=== PATIENT | female | born 1965 | race Caucasian/White ===

== ENCOUNTER 2020-04-08 10:29 | Outpatient (CLI) | payer OTHER, SELFPAY ==
--- NOTE | ~2020-04-08 | MR_ITS ---
EXAMINATION: MR abdomen wo/w con DATE: 04/08/2020 12:06 INDICATION: Primary malignant neuroendocrine tumor of ileum. TECHNIQUE: Magnetic resonance imaging (MRI) of the abdomen was performed without and with 20 mL Multi Anayeli intravenous contrast. Sequences included coronal T2-weighted FS FSE, coronal and axial FS FIEST A, axial T2-weighted FSE, coronal LAVA-flex, axial STIR FSE, axial DWI, axial dual-echo T1-weighted F SPGR, and axial LAVA. Postcontrast sequences included coronal LAVA-flex and a time course of axial LA VA. COMPARISON: CT abdomen and pelvis 11/04/2017 FINDINGS: There are three arterially enhancing masses in right hepatic lobe measuring up to 12 mm best identifi ed on diffusion-weighted images. The gallbladder is absent. The spleen, pancreas, and adrenal glands are normal. There are cysts in the kidneys measuring up to 3.1 cm on the left. There is a supraumbili terrance ventral hernia containing fat. There are no dilated loops of bowel. There are no pathologically e nlarged lymph nodes. There is no free intraperitoneal fluid. IMPRESSION: 1. Three arterially enhancing masses in right hepatic lobe measuring up to 12 mm, which may be benign or metastatic disease. Reviewed, dictated and finalized at location A. IMPRESSION: 1. Three arterially enhancing masses in right hepatic lobe measuring up to 12 m m, which may be benign or metastatic disease.
[2020-04-08 11:23] LABS: Estimated Glomerular Filt Rate 52
== END 2020-04-08 10:30 | disposition home or self-care (01) ==
LOC: ANHIMG 10:33
PROVIDERS: PCP Family Medicine
DX: C7A.8 Other malignant neuroendocrine tumors (principal); K76.9 Liver disease, unspecified; R16.0 Hepatomegaly, not elsewhere classified
CPT/HCPCS: 36415; 74183; A9577

== ENCOUNTER 2020-06-24 09:52 | Outpatient (CLI) | payer OTHER, SELFPAY ==
--- NOTE | 2020-06-24 10:00 | EST_ITS ---
Patient Info Name: Stephanie Pascal Age: 54 years : 1965 Gender: Female Ht: 71 in Wt: 250 lbs BSA: 2.42 m2 Exam Date: 06/24/2020 10:21 AM Exam Location: [facility], [place] Stress Patient Status: Outpatient Admit Date: 06/24/2020 Staff Ordering Physician: Romeo Acevedo DO Attending Provider: Romeo Acevedo DO Exercise Technologist: Leona Ivy RDCS Exercise Physician: Romeo Acevedo DO Exam Type: CA stress test treadmill Study Info Indications R06.09 - Other forms of dyspnea A treadmill exercise stress test was performed. Summary 1. 1. Negative Jese exercise stress test for ischemic ST changes by ECG criteria. 2. 2. Good functional capacity, achieving 8 METs of workload. 3. 3. Appropriate HR response to exercise. 4. 4. Appropriate HR recovery at 1 minute post exercise. 5. 5. No imaging with stress testing. 6. 6. Patient informed of the above results. Protocol: Jese Stress ECG Details Stage: REST Duration (min): 6 min : 38 sec Speed (mph): 0.0 Grade (%): 0 HR (bpm): 64 SBP (mmHg): 135 DBP (mmHg): 80 METS: --- Stage: REST Duration (min): 23 min : 39 sec Speed (mph): 0.0 Grade (%): 0 HR (bpm): 70 SBP (mmHg): 135 DBP (mmHg): 80 METS: --- Stage: STAGE 1 Duration (min): 1 min : 0 sec Speed (mph): 1.7 Grade (%): 10 HR (bpm): 74 SBP (mmHg): 135 DBP (mmHg): 80 METS: --- Stage: STAGE 1 Duration (min): 2 min : 0 sec Speed (mph): 1.7 Grade (%): 10 HR (bpm): 108 SBP (mmHg): 135 DBP (mmHg): 80 METS: --- Stage: STAGE 1 Duration (min): 3 min : 0 sec Speed (mph): 1.7 Grade (%): 10 HR (bpm): 115 SBP (mmHg): 138 DBP (mmHg): 94 METS: --- Stage: STAGE 2 Duration (min): 1 min : 0 sec Speed (mph): 2.5 Grade (%): 12 HR (bpm): 120 SBP (mmHg): 138 DBP (mmHg): 94 METS: --- Stage: STAGE 2 Duration (min): 2 min : 0 sec Speed (mph): 2.5 Grade (%): 12 HR (bpm): 118 SBP (mmHg): 178 DBP (mmHg): 113 METS: --- Stage: STAGE 2 Duration (min): 3 min : 0 sec Speed (mph): 2.5 Grade (%): 12 HR (bpm): 131 SBP (mmHg): 178 DBP (mmHg): 113 METS: --- Stage: STAGE 3 Duration (min): 0 min : 56 sec Speed (mph): 3.4 Grade (%): 14 HR (bpm): 142 SBP (mmHg): 173 DBP (mmHg): 52 METS: --- Stage: RECOVERY Duration (min): 0 min : 3 sec Speed (mph): 1.5 Grade (%): 0 HR (bpm): 142 SBP (mmHg): 173 DBP (mmHg): 52 METS: --- Stage: RECOVERY Duration (min): 1 min : 3 sec Speed (mph): 0.0 Grade (%): 0 HR (bpm): 123 SBP (mmHg): 172 DBP (mmHg): 71 METS: --- Stage: RECOVERY Duration (min): 2 min : 3 sec Speed (mph): 0.0 Grade (%): 0 HR (bpm): 108 SBP (mmHg): 177 DBP (mmHg): 79 METS: --- Stage: RECOVERY Duration (min): 3 min : 3 sec Speed (mph): 0
== END 2020-06-24 09:53 | disposition home or self-care (01) ==
LOC: ANHCARD 09:54
PROVIDERS: PCP Family Medicine; Visit Provider Internal Medicine Cardiovascular Disease
DX: R06.00 Dyspnea, unspecified (principal)
CPT/HCPCS: 93017

== ENCOUNTER 2020-07-16 08:18 | Outpatient (CLI) | payer OTHER, SELFPAY ==
--- NOTE | ~2020-07-16 | MM_ITS ---
EXAMINATION: MM screening emilia BI w leonides HISTORY: Screening TECHNIQUE: Craniocaudal and mediolateral oblique 3-D tomosynthesis images were obtained and synthetic 2-D images were generated. CAD analysis was submitted and interpreted. COMPARISON: No prior mammogram is available for comparison at this institution. BREAST PARENCHYMAL COMPOSITION: There are scattered areas of fibroglandular density. FINDINGS: There are asymmetries in the upper outer quadrant of the right breast. No mammographic evid ence for malignancy in the left breast. IMPRESSION: 1. Irregular asymmetries, upper outer quadrant of the right breast. 2. Additional mammographic views and possible breast ultrasound are recommended. BI-RADS Category 0: Incomplete: Needs additional imaging evaluation. Reviewed, dictated and finalized at location A. IMPRESSION: 1. Irregular asymmetries, upper outer quadrant of the right breast. 2. Additional mammographic views and possible breast ultrasound are recommended . BI-RADS Category 0: Incomplete: Needs additional imaging evaluation.
== END 2020-07-16 08:19 | disposition home or self-care (01) ==
LOC: ANHIMG 08:22
PROVIDERS: PCP Family Medicine; Visit Provider Student in an Organized Health Care Education/Training Program
DX: Z12.31 Encounter for screening mammogram for malignant neoplasm of breast (principal); N64.89 Other specified disorders of breast
CPT/HCPCS: 77063; 77067

== ENCOUNTER 2020-09-05 06:57 | Outpatient (CLI) | payer OTHER, SELFPAY ==
--- NOTE | ~2020-09-05 | MR_ITS ---
EXAMINATION: MR abdomen wo/w con DATE: 09/05/2020 08:33 INDICATION: Primary malignant neuroendocrine tumor of ileum. TECHNIQUE: Magnetic resonance imaging (MRI) of the abdomen was performed without and with 20 mL Multi Anayeli intravenous contrast. Sequences included coronal T2-weighted FS FSE, coronal and axial FS FIEST A, axial T2-weighted FSE, coronal LAVA-flex, axial STIR FSE, axial DWI, axial dual-echo T1-weighted F SPGR, and axial LAVA. Postcontrast sequences included coronal LAVA-flex and a time course of axial LA VA. COMPARISON: Abdomen MRI 04/08/2020 FINDINGS: There is diffuse hepatic steatosis. There are greater than 10 scattered arterial enhancing masses in the liver measuring up to 16 mm, increased from 12 mm on 04/08/20. More masses are visible than on the prior exam. The gallbladder is absent. The spleen, pancreas, and adrenal glands are normal. There are cysts in the kidneys measuring up to 3.3 cm on the left. There is a supraumbilical ventral hernia co ntaining fat. There are no dilated loops of bowel. There are no pathologically enlarged lymph nodes. There is no free intraperitoneal fluid. IMPRESSION: 1. Worsened liver masses, consistent with metastatic disease. Reviewed, dictated and finalized at location A.
[2020-09-05 07:57] LABS: Estimated Glomerular Filt Rate 58
== END 2020-09-05 06:58 | disposition home or self-care (01) ==
PROVIDERS: PCP Family Medicine
DX: C7A.8 Other malignant neuroendocrine tumors (principal); C7A.012 Malignant carcinoid tumor of the ileum
CPT/HCPCS: 74183; A9577

== ENCOUNTER 2021-02-02 12:44 | Outpatient (CLI) | payer OTHER, SELFPAY ==
--- NOTE | ~2021-02-02 | MR_ITS ---
EXAMINATION: MR abdomen wo/w con DATE: 02/02/2021 14:20 INDICATION: Neuroendocrine cancer. TECHNIQUE: Magnetic resonance imaging (MRI) of the abdomen was performed without and with 20 mL Multi Anayeli intravenous contrast. Sequences included coronal T2-weighted FS FSE, coronal and axial FS FIEST A, axial T2-weighted FSE, coronal LAVA-flex, axial STIR FSE, axial DWI, axial dual-echo T1-weighted F SPGR, and axial LAVA. Postcontrast sequences included coronal LAVA-flex and a time course of axial LA VA. COMPARISON: Abdomen MRI 09/05/2020 FINDINGS: There is diffuse hepatic steatosis. There are greater than 10 lesions scattered in the liver measurin g up to 18 mm, increased from 16 mm on the prior exam. These lesions are best identified on diffusion -weighted images. More lesions are present than on the prior exam. The gallbladder is absent. The spl een, pancreas, and adrenal glands are normal. There are cysts in the kidneys measuring up to 3.3 cm o n the left. There is a supraumbilical ventral hernia containing fat. There are no dilated loops of abbey wel. There are no pathologically enlarged lymph nodes. There is no free intraperitoneal fluid. IMPRESSION: 1. Worsened liver masses, consistent with metastatic disease. Reviewed, dictated and finalized at location A.
[2021-02-02 13:42] LABS: Estimated Glomerular Filt Rate 57
== END 2021-02-02 12:45 | disposition home or self-care (01) ==
LOC: ANHIMG 13:07
PROVIDERS: PCP Family Medicine
DX: C7A.8 Other malignant neuroendocrine tumors (principal); R16.0 Hepatomegaly, not elsewhere classified
CPT/HCPCS: 74183; A9577

== ENCOUNTER 2021-03-19 18:32 | Emergency (ER) | payer OTHER, SELFPAY ==
--- NOTE | ~2021-03-19 | XR_ITS ---
EXAMINATION: XR wrist RT min 3V EXAM DATE: 03/19/2021 19:09 INDICATION: Initial encounter following injury, with pain of the right wrist. TECHNIQUE: Right wrist frontal, frontal with ulnar deviation, oblique and lateral projections obtain ed and reviewed. There is no prior study for comparison. FINDINGS: Right wrist scapholunate joint space is maintained. There are no acute fractures or disloca tions identified. There is no subcutaneous gas. The soft tissue is unremarkable. There are no rad iopaque foreign bodies. IMPRESSION: 1. XR wrist RT min 3V exam without acute osseous findings. Reviewed, dictated and finalized at location A.
--- NOTE | ~2021-03-19 | XR_ITS ---
EXAMINATION: XR elbow RT min 3V EXAM DATE: 03/19/2021 19:32 INDICATION: Slipped off curb 03/19/21. Generalized post pain. Initial encounter. TECHNIQUE: Right elbow frontal, lateral with flexion, and oblique projections obtained and reviewed. There is no prior study for comparison. FINDINGS: There is acute closed posttraumatic right radial head/neck fracture with about 1 or 2 mm of depression. There is an elbow joint hemarthrosis. No other acute findings. IMPRESSION: Acute right radial head/neck fracture. Hemarthrosis. Reviewed, dictated and finalized at location A.
--- NOTE | 2021-03-19 18:34 | ED.UPPEXIN ---
HPI - Extremity Injury (Upper) General Chief Complaint: Extremity Injury, Upper Stated Complaint: Right arm injury Time Seen by Provider: 03/19/21 18:35 Source: patient and RN notes reviewed History of Present Illness HPI narrative: Patient is a 55-year-old female who presents the urgent care with complaints of right wrist/forearm injury. Patient states that she fell, tripping over the curb and at 530 this evening while walking. States that she caught herself with both hands out. Patient denies hitting her head or any loss of consciousness. Denies of any other injuries from the fall. Patient states that she is taken Advil prior to her arrival. No other acute complaints. No acute distress noted. Patient aware of the plan of care. Some parts of this dictation were generated by voice recognition software and may contain typographical and/or grammatical inaccuracies. Related Data Home Medications Medication Instructions Recorded Confirmed cholecalciferol (vitamin D3) 125 125 mcg PO DAILY 02/06/20 12/15/20 mcg (5,000 unit) capsule octreotide,microspheres 10 mg 10 mg IM ONCE 12/02/20 12/15/20 intramuscular kit Allergies Allergy/AdvReac Type Severity Reaction Status Date / Time Penicillins Allergy Mild rash Verified 03/19/21 18:44 nitrofurantoin Allergy Unknown rash Verified 03/19/21 18:44 Sulfa (Sulfonamide Allergy Unknown rash Verified 03/19/21 18:44 Antibiotics) Review of Systems Review of Systems: Narrative: CONSTITUTIONAL: Denies fever, chills, or sweats. EYES: Denies visual changes, redness, or discharge. ENT: Denies rhinorrhea, congestion, sore throat, or otalgia. CARDIOVASCULAR: Denies chest pain, palpitations, or edema. RESPIRATORY: Denies cough or dyspnea. GASTROINTESTINAL: Denies abdominal pain, nausea, vomiting, or diarrhea. GENITOURINARY: Denies dysuria or hematuria. SKIN: Denies rash or itching. MUSCULOSKELETAL: Reports of right wrist/forearm pain NEUROLOGIC: Denies headache, numbness, or weakness. All other systems reviewed are negative, except as documented in HPI. [facility] Past Medical History Medical History Anxiety Eustachian tube dysfunction Generalized anxiety disorder with panic attacks (~09/2019) H/O malignant carcinoid tumor of small intestine (~2018) Hypertension Hypothyroidism Neck muscle strain Surgical History Surgical History H/O right hemicolectomy (~2018) H/O thyroidectomy S/P cholecystectomy Family History Family History Father Family history of liver disease Hypertension Sibling Family history of heart disease in male family member before age 55 Family history of cardiovascular disease Mother Hypertension Grandparent Acute myocardial infarction Other Family history of blood dyscrasia Family history of mental disorder Family history of obesity Social History Social History Smoking packs per day: 0.5 Smoking cigarettes per day: 10.0 Years smoked: 15 Smoking pack-years: 7.50 Smoking status: Former smoker Tobacco type: cigarettes Smoking end date: 11/07/94 Alcohol intake: current Substance use: never Substance use type: does not use Comments At the time of my signature, I reviewed and agree with the nursing past medical, surgical, social, and family history. There is no relevant family history pertinent to the patient complaint. Exam Narrative: Exam Narrative: GENERAL: This is a well-nourished, well-developed patient, in no apparent distress. HEAD: normocephalic, atraumatic. EYES: PERRL. Sclera clear/white. Vision is grossly intact. EARS: External ears normal NOSE: External nose normal with no obvious nasal discharge, nares without redness, no rhinorrhea. THROAT: Mucous membranes moist NECK: Neck supple CARDIOVASCULA
[2021-03-19 18:38] VITALS: BP 137/77; PULSE 72; RESP 14; TEMP 36; O2SAT 98
[2021-03-19 18:46] VITALS: BP 137/77; PULSE 72; RESP 14; TEMP 36; O2SAT 98
== END 2021-03-19 20:09 | disposition home or self-care (01) ==
PROVIDERS: Emergency Provider Nurse Practitioner Family
DX: S52.121A Displaced fracture of head of right radius, initial encounter for closed fracture (principal); S52.131A Displaced fracture of neck of right radius, initial encounter for closed fracture; S63.501A Unspecified sprain of right wrist, initial encounter; S66.911A Strain of unspecified muscle, fascia and tendon at wrist and hand level, right hand, initial encounter; W18.09XA Striking against other object with subsequent fall, initial encounter
CPT/HCPCS: 29105; 73080; 73110; 99214; A4565; G0463

== ENCOUNTER 2021-06-04 09:01 | Outpatient (CLI) | payer OTHER, SELFPAY ==
[2021-06-04 16:53] LABS: Vitamin D 25 Hydroxy 39.1 ng/mL
== END 2021-06-04 09:02 | disposition home or self-care (01) ==
PROVIDERS: Visit Provider Internal Medicine Endocrinology, Diabetes & Metabolism
DX: E55.9 Vitamin D deficiency, unspecified (principal); R79.89 Other specified abnormal findings of blood chemistry
CPT/HCPCS: 36415; 82306

== ENCOUNTER 2021-07-17 09:13 | Outpatient (CLI) | payer OTHER, SELFPAY ==
--- NOTE | ~2021-07-17 | MM_ITS ---
EXAMINATION: MM screening emilia BI w leonides HISTORY: Screening mammogram TECHNIQUE: Craniocaudal and mediolateral oblique 3-D tomosynthesis images were obtained and synthetic 2-D images were generated. CAD analysis was submitted and interpreted. COMPARISON: 07/16/2020, 05/30/2018 bilateral digital screening mammogram examinations BREAST PARENCHYMAL COMPOSITION: There are scattered areas of fibroglandular density. FINDINGS: There is no evidence of suspicious mass, calcification, or architectural distortion to sugg est malignancy in either breast. There has been no suspicious interval change. IMPRESSION: 1. No mammographic evidence of malignancy. 2. Recommend routine screening mammography in one year. BI-RADS Category 1: Negative Reviewed, dictated and finalized at location A.
== END 2021-07-17 09:14 | disposition home or self-care (01) ==
LOC: ANHIMG 09:15
PROVIDERS: Visit Provider Student in an Organized Health Care Education/Training Program
DX: Z12.31 Encounter for screening mammogram for malignant neoplasm of breast (principal)
CPT/HCPCS: 77063; 77067

== ENCOUNTER → 2021-09-02 08:47 | Outpatient (CLI) | payer OTHER, SELFPAY ==
--- NOTE | ~2021-09-02 | MR_ITS ---
EXAMINATION: MR elbow RT wo con DATE: 09/02/2021 09:28 INDICATION: Displaced fracture of head of right radius, initial encounter. TECHNIQUE: Magnetic resonance imaging (MRI) of the right elbow was performed without intravenous cont rast. Sequences included coronal, axial, and sagittal PD-weighted FS FSE and coronal, axial, and sagi ttal PD-weighted FSE. COMPARISON: Right elbow radiographs 08/12/2021 FINDINGS: Osseous/other: There is a fracture of anterior radial head involving 40% of the articular surface with 1 mm step-off . There is partial-thickness cartilage loss in radiocapitellar joint. Tendons: The biceps tendon and brachialis tendon are normal. There is mild common extensor tendinopathy. There is mild common flexor tendinopathy. Ligaments: Radial collateral ligament and lateral ulnar collateral ligament are intact. There is a partial tear of ulnar collateral ligament at the ulnar attachment. Cubital tunnel: There is increased signal in ulnar nerve suggesting neuropathy. Fluid: There is an elbow joint effusion. IMPRESSION: 1. Radial head fracture involving the anterior 40% of the articular surface with 1 mm step-off. 2. Moderate chondrosis of radiocapitellar joint. 3. Elbow joint effusion. 4. Partial tear of ulnar collateral ligament. 5. Increased signal in ulnar nerve suggesting neuropathy. Reviewed, dictated and finalized at location A. IMPRESSION: 1. Radial head fracture involving the anterior 40% of the articular surface wit h 1 mm step-off. 2. Moderate chondrosis of radiocapitellar joint. 3. Elbow joint effusion. 4. Partial tear of ulnar collateral ligament. 5. Increased signal in ulnar nerve suggesting neuropathy.
== END ==
PROVIDERS: Visit Provider Physician Assistant Surgical
DX: S52.121A Displaced fracture of head of right radius, initial encounter for closed fracture (principal); M25.421 Effusion, right elbow; S53.441A Ulnar collateral ligament sprain of right elbow, initial encounter
CPT/HCPCS: 73221

== ENCOUNTER 2022-04-07 09:22 | Outpatient (CLI) | payer OTHER, SELFPAY ==
--- NOTE | ~2022-04-07 | US_ITS ---
EXAMINATION: US venous doppler [facility] DATE: 04/07/2022 10:24 INDICATION: Lymphedema TECHNIQUE: Grayscale ultrasound images without and with compression and Doppler ultrasound images of the bilateral lower extremity veins were obtained. COMPARISON: None. FINDINGS: The visualized portions of right common femoral vein, profunda (deep) femoral vein, femoral vein, pop liteal vein, posterior tibial veins, peroneal veins, gastrocnemius vein and greater saphenous vein ou tflow are patent. Right standing venous mapping: reflux seconds duration; vein size. Greater saphenous origin: 0 seconds; 6.5 mm. Greater saphenous mid thigh:------ 0 seconds; 2.9 mm. Greater saphenous below knee:--- >4 seconds; 3.5 mm. Lesser saphenous proximally:------ 0 seconds; 2.6 mm. Lesser saphenous distally: 0 seconds; 3.8 mm. The visualized portions of left common femoral vein, profunda femoral vein, femoral vein, popliteal v ein, posterior tibial veins, peroneal veins, gastrocnemius vein and greater saphenous vein outflow ar e patent. Left standing venous mapping: reflux seconds duration; vein size. Greater saphenous origin: 0 seconds; 6.7 mm. Greater saphenous mid thigh:------ 0 seconds; 4.6 mm. Greater saphenous below knee:--- 0 seconds; 4.1 mm. Lesser saphenous proximally:------ 0 seconds; 4.4 mm. Lesser saphenous distally: 0 seconds; 2.6 mm. IMPRESSION: 1. No deep venous thrombosis in either lower limb. 2. Venous reflux of >4 second duration at the right greater saphenous vein at the calf. Reviewed, dictated and finalized at location B. IMPRESSION: 1. No deep venous thrombosis in either lower limb. 2. Venous reflux of >4 second duration at the right greater saphenous vein at t he calf.
== END 2022-04-07 09:23 | disposition home or self-care (01) ==
PROVIDERS: PCP Family Medicine; Visit Provider Orthopaedic Surgery
DX: I89.0 Lymphedema, not elsewhere classified (principal); I87.2 Venous insufficiency (chronic) (peripheral)
CPT/HCPCS: 93970

== ENCOUNTER 2022-05-26 13:00 | Outpatient (RCR) | payer OTHER, SELFPAY ==
--- NOTE | 2022-04-27 11:53 | PCPTNOTE ---
pt will be on vacation next week, so treatment is delayed in starting.
--- NOTE | 2022-04-27 11:54 | PTOPEVAL ---
PHYSICAL THERAPY EVALUATION AND PLAN OF CARE 04-27-22 Thank you for referring Stella Pascal to [facility].? She is scheduled to be seen for therapy? 2x/week for 5 weeks. Please review, sign, date and return this plan of care SINDHU. I agree with and certify that the following plan of care is medically necessary. Referring Physician Date Attending Provider: Bernardo So MD Past Medical History Source of Past Medical History Recalled from Previous Visit, Confirmed with Patient/Family Neurological History Hx Neurological Disorders No Significant History Cardiovascular History Hx Hypertension Yes: meds Respiratory History Hx COVID-19 Yes: 2x-no residual effect, but fatigue more easily Gastrointestinal History Hx Cholecystectomy Yes Hx Other Gastrointestinal Disorders Yes: COLON RESECTION FOR CARCINOID CANCER Genitourinary History Hx Genitourinary Disorders No Significant History Musculoskeletal History Hx Other Musculoskeletal Disorders Yes: L achilles tendonitis- injections, had PT-exercises Hematological History Hx Hematological Disorders No Significant History Endocrine History Hx Hypothyroidism Yes: meds Hx Thyroidectomy Yes: PARTIAL HEENT History Hx HEENT Disorders No Significant History Integumentary History Hx Skin Disorders No Significant History Reproductive History Hx Abnormal Uterine Bleeding Yes Hx Post Menopausal Yes Psychosocial History Hx Anxiety Yes Pain History History of Any Previous or Ongoing No Significant History Instance of Pain Anesthesia History Hx Anesthesia Reactions No Significant History Other History Hx Cancer Yes: carcinoid cancer- monitor liver Hx Other Medical Conditions Yes: obesity 250# Evaluation Information Diagnosis lymphedema, venous insufficiency Onset about one year Activity Level (Last 3 Months) 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
--- NOTE | 2022-04-27 12:05 | PCPTNOTE ---
pt signed photo consent and photo was taken of her legs. Transferred photo to EMR;
--- NOTE | 2022-05-26 14:25 | PTOPEVAL ---
PHYSICAL THERAPY DISCHARGE 05-26-22 Refer to the clinical summary below, for her status today, compared to the initial evaluation. The goals were partially met. Discharge PT services. Thank you for referring Stella Pascal to [facility] Please review, sign, date and return this Discharge Report SINDHU. I agree with and certify that the following plan of care is medically necessary. Referring Physician Date Attending Provider: Bernardo So MD Subjective Stella reports the compression garments are comfortable and does not have any problems with them. She is doing her self lymph massage. And feels like she is ready to be discharged from therapy. Pain Assessment Self Report Self Report Pain Level 0 Pain Score Pain Score 0: Self Report Skin Inspection Location Left Lower Extremity,Right Lower Extremity Skin Observations Foot Sparing,Lipedema Tissue Texture Firm Lymphedema Stage II Skin Inspection Comment L & R LE: dorsum of foot sparing; edema over medial and lateral malleoli area- pocket of semi firm fluid just distal to malleoli medial tibial area--increase edema, pocket of fluid, with reports of tenderness; no redness over legs/ thigh with good skin color and without fibrotic tissue; wearing calf high compression garment R and L, 20-30 mmHg- generic ones she ordered off internet; has not yet received the Medi Plus garments--should arrive today; pt has Solaris foot piece, just used one night with sleeping, for ankles, and was able to sleep OK with it; reinforced use of it nightly for compression; indep with self massage, knows precautions for LE care and lymphedema treatment; LE Circumferential Measurement Right LE Lymphedema Side Right Metatarsal Heads (cm) 23.4 Figure 8 of Ankle (cm) 60 8 cm From Bottom of Foot (cm) 33 12 cm From Bottom of Foot (cm) 33.2 16 cm From Bottom of Foot (cm) 34 20 cm From Bottom of Foot (cm)
== END 2022-05-27 10:37 | disposition home or self-care (01) ==
LOC: ANHPT 13:00
PROVIDERS: PCP Family Medicine; Visit Provider Orthopaedic Surgery
DX: I89.0 Lymphedema, not elsewhere classified (principal); I87.2 Venous insufficiency (chronic) (peripheral)
CPT/HCPCS: 29581; 97140; 97161

== ENCOUNTER 2022-07-23 20:51 | Outpatient (NON) | payer OTHER, SELFPAY | END 2022-07-23 20:52 | disposition home or self-care (01) | LOC: ANHLAB 21:01 | PROVIDERS: PCP Family Medicine; Visit Provider Nurse Practitioner | DX: R39.9 Unspecified symptoms and signs involving the genitourinary system (principal) | CPT/HCPCS: 87086; 87088 ==

== ENCOUNTER 2022-08-25 08:11 | Outpatient (CLI) | payer OTHER, SELFPAY ==
--- NOTE | ~2022-08-25 | MM_ITS ---
EXAMINATION: MM screening [facility] BI w leonides HISTORY: Screening TECHNIQUE: Craniocaudal and mediolateral oblique 3-D tomosynthesis images were obtained and synthetic 2-D images were generated. CAD analysis was submitted and interpreted. COMPARISON: Comparison to multiple prior studies sequentially, with oldest reviewed study dated 07/2020. BREAST PARENCHYMAL COMPOSITION: There are scattered areas of fibroglandular density. FINDINGS: There is no evidence of suspicious mass, calcification, or architectural distortion to sugg est malignancy in either breast. There has been no suspicious interval change. IMPRESSION: 1. No mammographic evidence of malignancy. 2. Recommend routine screening mammography in one year. BI-RADS Category 1: Negative Reviewed, dictated and finalized at location A.
== END 2022-08-25 08:12 | disposition home or self-care (01) ==
LOC: ANHIMG 08:14
PROVIDERS: PCP Family Medicine; Visit Provider Student in an Organized Health Care Education/Training Program
DX: Z12.31 Encounter for screening mammogram for malignant neoplasm of breast (principal)
CPT/HCPCS: 77063; 77067

== ENCOUNTER 2022-09-02 12:02 | Outpatient (CLI) | payer OTHER, SELFPAY ==
[2022-09-02 17:27] LABS: Free T4 Free Thyroxine 1.14 ng/mL (0.78-2.19)
== END 2022-09-02 12:03 | disposition home or self-care (01) ==
LOC: ANHWCLAB 12:04
PROVIDERS: PCP Family Medicine; Visit Provider Internal Medicine Endocrinology, Diabetes & Metabolism
DX: E03.9 Hypothyroidism, unspecified (principal)
CPT/HCPCS: 36415; 84439; 84443

== ENCOUNTER 2022-09-14 11:00 | Outpatient (CLI) | payer OTHER, SELFPAY ==
--- NOTE | ~2022-09-14 | US_ITS ---
EXAMINATION: US thyroid DATE: 09/14/2022 11:32 INDICATION: Nontoxic single thyroid nodule. TECHNIQUE: Multiple ultrasound images of the thyroid were obtained. COMPARISON: Ultrasound 04/23/2019, 04/07/2016 FINDINGS: The right thyroid lobe measures 5.6 x 2.3 x 2.8 cm. The left thyroid lobe is absent. In the right th yroid lobe, there is a 9 mm solid, hypoechoic, wider than tall nodule with smooth margin without echo genic foci (TI-RADS TR4). In the right thyroid lobe, there is an 11 mm solid, isoechoic, taller than wide nodule with ill-defined margin without echogenic foci (TR4), stable from 04/07/16. IMPRESSION: 1. Thyroid nodules, likely not clinically significant. No follow-up is needed. Reviewed, dictated and finalized at location A. L FRAMER
== END 2022-09-14 11:01 | disposition home or self-care (01) ==
PROVIDERS: PCP Family Medicine; Visit Provider Internal Medicine Endocrinology, Diabetes & Metabolism
DX: E04.2 Nontoxic multinodular goiter (principal)
CPT/HCPCS: 76536

== ENCOUNTER 2022-10-05 09:48 | Outpatient (CLI) | payer OTHER, SELFPAY ==
--- NOTE | ~2022-10-05 | MR_ITS ---
CORRECTED REPORT Ordering provider changed to Adan Salinas D.C. 10/06/22[facility] EXAMINATION: MR ankle LT wo/w con DATE: 10/05/2022 10:56 INDICATION: Left ankle tendon strain. Left foot pain. TECHNIQUE: Magnetic resonance imaging (MRI) of the left ankle was performed without and with 20 mL MultiHance intravenous contrast. COMPARISON: Left ankle radiographs 03/16/2022 FINDINGS: Medial ankle ligaments: The deep and superficial components of the deltoid ligament are normal. Lateral ankle ligaments: The anterior and posterior talofibular ligaments, calcaneofibular ligament, and posterior tibiofibular ligaments are normal. There are changes of prior sprain of anterior tibiofibular ligament characterized by increased signal intensity. Tendons: There is mild flexor hallucis longus tendinopathy. The anterior ankle tendons are normal. There is a longitudinal split tear of peroneus brevis tendon. Peroneus longus tendon is normal. There is moderate Achilles tendinopathy characterized by thickening and increased signal intensity. There is an enthesophyte at the calcaneal attachment. There is pre-Achilles bursitis. Plantar fascia: There is thickening and increased signal involving the central band of plantar fascia, consistent with fasciitis. There is an enthesophyte at the calcaneal attachment. Bones/other: Bone alignment is normal. No fracture. The talar dome is normal. Fluid: There is no joint effusion. IMPRESSION: 1. Severe Achilles tendinopathy. 2. Pre-Achilles bursitis. 3. Longitudinal split tear of peroneus brevis tendon. 4. Plantar fasciitis. Reviewed, dictated and finalized at location A. ESSOR OF THEATER MTDD
== END 2022-10-05 09:49 | disposition home or self-care (01) ==
PROVIDERS: PCP Family Medicine; Visit Provider Orthopaedic Surgery
DX: S96.912A Strain of unspecified muscle and tendon at ankle and foot level, left foot, initial encounter (principal); M76.62 Achilles tendinitis, left leg; S96.812A Strain of other specified muscles and tendons at ankle and foot level, left foot, initial encounter; M72.2 Plantar fascial fibromatosis
CPT/HCPCS: 73723; A9577

== ENCOUNTER 2023-06-21 08:55 | Outpatient (CLI) | payer OTHER, SELFPAY ==
[2023-06-21 19:38] LABS: Kit Draw Collected
== END 2023-06-21 08:56 | disposition home or self-care (01) ==
LOC: ANHGOSHLAB 08:58
PROVIDERS: PCP Family Medicine; Visit Provider Family Medicine
DX: E78.5 Hyperlipidemia, unspecified (principal); E03.9 Hypothyroidism, unspecified; I10 Essential (primary) hypertension; E55.9 Vitamin D deficiency, unspecified; E53.8 Deficiency of other specified B group vitamins
CPT/HCPCS: 36415

== ENCOUNTER 2023-08-31 13:42 | Outpatient (CLI) | payer OTHER, SELFPAY ==
--- NOTE | ~2023-08-31 | MM_ITS ---
EXAMINATION: MM screening emilia BI w leonides HISTORY: Screening mammogram TECHNIQUE: Craniocaudal and mediolateral oblique 3-D tomosynthesis images were obtained and synthetic 2-D images were generated. CAD analysis was submitted and interpreted. COMPARISON: 08/25/2022, 07/17/2021, 07/16/2020 bilateral screening mammogram examinations BREAST PARENCHYMAL COMPOSITION: There are scattered areas of fibroglandular density. FINDINGS: There is no evidence of suspicious mass, calcification, or architectural distortion to sugg est malignancy in either breast. There has been no suspicious interval change. IMPRESSION: 1. No mammographic evidence of malignancy. 2. Recommend routine screening mammography in one year. BI-RADS Category 1: Negative Reviewed, dictated and finalized at location A.
== END 2023-08-31 13:43 | disposition home or self-care (01) ==
LOC: ANHIMG 13:44
PROVIDERS: PCP Family Medicine; Visit Provider Student in an Organized Health Care Education/Training Program
DX: Z12.31 Encounter for screening mammogram for malignant neoplasm of breast (principal)
CPT/HCPCS: 77063; 77067

== ENCOUNTER 2023-09-19 15:00 | Outpatient (CLI) | payer OTHER, SELFPAY ==
[2023-09-19 18:04] LABS: Appearance Urine Clear (Clear); Bilirubin Urine Negative (Negative); Blood Urine Negative (Negative); Color Urine Yellow (Yellow); Glucose Urine UA Negative (Negative); Ketones Urine Negative (Negative); Leukocyte Esterase Ur Negative LEU/UL (Negative); Nitrate Urine Negative (Negative); Protein Urine Negative (Negative); Specific Grav Ur 1.005 (1.001-1.035); Urobilinogen Urine 0.2 mg/dL (<2.0); pH Urine 5.5 (5.0-9.0)
[2023-09-19 18:18] LABS: Add Urine Microscopic? NO
== END 2023-09-19 15:01 | disposition home or self-care (01) ==
LOC: ANHGOSHLAB 15:01
PROVIDERS: PCP Family Medicine; Visit Provider Family Medicine
DX: R30.0 Dysuria (principal)
CPT/HCPCS: 81003

== ENCOUNTER 2024-05-04 10:04 | Outpatient (CLI) | payer OTHER, SELFPAY | END 2024-05-04 10:05 | disposition home or self-care (01) | LOC: ANHAUDASC 10:05 | PROVIDERS: PCP Family Medicine; Visit Provider Otolaryngology | DX: H69.90 Unspecified Eustachian tube disorder, unspecified ear (principal); H90.6 Mixed conductive and sensorineural hearing loss, bilateral; H90.3 Sensorineural hearing loss, bilateral | CPT/HCPCS: 92557; 92567 ==

== ENCOUNTER 2024-06-13 15:29 | Outpatient (CLI) | payer OTHER, SELFPAY ==
--- NOTE | ~2024-06-13 | XR_ITS ---
XR knee RT min 4V 06/13/2024 15:44 Indication: Right knee pain Procedure: 4 views right knee Comparison: No prior studies for comparison. Findings: There is mild tricompartment osteoarthritis of the right knee. No significant joint effusio n. No fracture or traumatic malalignment. No foreign bodies. Impression: 1: Mild tricompartment osteoarthritis of the right knee. Reviewed, dictated and finalized at location B. Impression: 1: Mild tricompartment osteoarthritis of the right knee.
== END 2024-06-13 15:30 ==
PROVIDERS: PCP Family Medicine; Visit Provider Family Medicine
DX: M25.561 Pain in right knee (principal); M17.11 Unilateral primary osteoarthritis, right knee
CPT/HCPCS: 73564

== ENCOUNTER 2024-06-29 09:18 | Outpatient (CLI) | payer OTHER, SELFPAY ==
[2024-06-29 13:55] LABS: Hematocrit 36.5 % (37.0-47.0); Hemoglobin 12.1 g/dL (12.0-15.0); Red Blood Count 3.81 M/mm3 (4.2-5.4); White Blood Count 4.1 K/mm3 (4.5-10.0)
[2024-06-29 13:56] LABS: Basophils Absolute Auto 0.1 K/mm3 (0.0-0.1); Basophils Percent Auto 1.7 % (0.2-1.2); Eosinophils Absolute Auto 0.1 K/mm3 (0-0.3); Eosinophils Percent Auto 3.4 % (0-4.4); Immature Granulocyte Absolute 0.01 K/mm3 (0.00-0.031); Immature Granulocyte Percent A 0.2 % (0-0.5); Lymphocytes Percent Auto 24.6 % (18.3-44.2); Mean Corpuscular HGB Conc 33.2 g/dl (32-36); Mean Corpuscular Hemoglobin 31.8 pg (26-34); Mean Corpuscular Volume 95.8 fl (80-100); Mean Platelet Volume 10.2 fl (7.4-10.4); Monocytes Absolute Auto 0.4 K/mm3 (0.1-0.6); Monocytes Percent Auto 9.4 % (2.6-8.5); Neutrophils Absolute Auto 2.5 K/mm3 (1.3-6.7); Neutrophils Percent Auto 60.7 % (45.5-73.1); Platelet Count Result 204 k/mm3 (150-375); Red Cell Distribution Width 12.8 % (11.5-14.5)
[2024-06-29 14:12] LABS: Alanine Aminotransferase 25 U/L (6-35); Albumin Level 4.2 g/dL (3.5-5.1); Alkaline Phosphatase 53 U/L (38-126); Anion Gap 6 mmol/L (4-12); Aspartate Amino Transferase 43 U/L (14-36); Bilirubin,Total 0.5 mg/dL (0.2-1.3); Blood Urea Nitrogen 16 mg/dL (7-17); Calcium 8.8 mg/dL (8.4-10.2); Carbon Dioxide 29 mmol/L (22-30); Chloride 101 mmol/L (98-107); Cholesterol 159 mg/dL (0-200); Estimated Glomerular Filt Rate 57; Glucose 104 mg/dL (65-110); HDL Direct 58 mg/dL; Potassium 4.3 mmol/L (3.4-5.0); Sodium 136 mmol/L (137-145); Triglycerides 80 mg/dL (<150)
[2024-06-29 14:26] LABS: LDL Cholesterol Direct 73 mg/dL
[2024-06-29 14:31] LABS: Hemoglobin A1C 5.7 % (<5.7)
[2024-06-29 15:23] LABS: Vitamin D 25 Hydroxy 33.3 ng/mL
== END 2024-06-29 09:19 | disposition home or self-care (01) ==
LOC: ANHGOSHLAB 09:19
PROVIDERS: PCP Family Medicine; Visit Provider Family Medicine
DX: Z00.00 Encounter for general adult medical examination without abnormal findings (principal); I10 Essential (primary) hypertension; E03.9 Hypothyroidism, unspecified; F41.9 Anxiety disorder, unspecified; E53.8 Deficiency of other specified B group vitamins; E55.9 Vitamin D deficiency, unspecified; E78.5 Hyperlipidemia, unspecified; R73.9 Hyperglycemia, unspecified
CPT/HCPCS: 36415; 80053; 80061; 82306; 82607; 83036; 84443; 85025

== ENCOUNTER 2024-09-07 14:39 | Outpatient (CLI) | payer OTHER, SELFPAY ==
--- NOTE | ~2024-09-07 | MM_ITS ---
EXAMINATION: MM screening emilia BI w leonides HISTORY: Screening TECHNIQUE: Craniocaudal and mediolateral oblique 3-D tomosynthesis images were obtained and synthetic 2-D images were generated. CAD analysis was submitted and interpreted. COMPARISON: Comparison to multiple prior studies sequentially, with oldest reviewed study dated 05/30. BREAST PARENCHYMAL COMPOSITION: Not dense: There are scattered areas of fibroglandular density. FINDINGS: There is no evidence of suspicious mass, calcification, or architectural distortion to sugg est malignancy in either breast. There has been no suspicious interval change. IMPRESSION: 1. No mammographic evidence of malignancy. 2. Recommend routine screening mammography in one year. BI-RADS Category 1: Negative Reviewed, dictated and finalized at location B. GHT HANDLER
== END 2024-09-07 14:40 | disposition home or self-care (01) ==
LOC: ANHIMG 14:56
PROVIDERS: PCP Family Medicine; Visit Provider Student in an Organized Health Care Education/Training Program
DX: Z12.31 Encounter for screening mammogram for malignant neoplasm of breast (principal)
CPT/HCPCS: 77063; 77067

== ENCOUNTER 2025-06-05 15:49 | Outpatient (NON) | payer OTHER, SELFPAY ==
--- OUTSIDE RECORDS SUMMARY | 2025-06-05 15:52 | XMS_ITS | Clinical Summary ---
Author Organization [facility] Address [address] [place] [address] Phone Care Team Providers Care Engineering Leader Name Role Phone Kelli Munoz MD Primary Care Provider [phone]- [phone] Allergies Active Allergy Reactions Criticality Noted Date Comments Penicillins Unknown 11/30/2017 Sulfasalazine Rash Low 07/19/2013 Medications losartan (COZAAR) 50 mg tablet 50 mg. Active aspirin (ECOTRIN EC) 81 mg Tablet, Delayed Release (E.C.) Take 81 mg by mouth daily. Active levothyroxine 100 mcg tablet Take 100 mcg by mouth daily substitute crossing guard. 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 Gender Identity Not on file Sexual Orientation Not on file Occupation Industry Job Start Date Job End Date Not on file Not on file Not on file Not on file Last Filed Vital Signs Vital Sign Reading Time Taken Comments Blood Pressure 133/84 11/30/2017 3:31 PM ALARM TECHNICIAN Pulse 78 11/30/2017 3:31 PM ALARM TECHNICIAN Temperature - - Respiratory Rate - - Oxygen Saturation - - Inhaled Oxygen Concentration - - Weight 99.8 kg (220 lb) 11/30/2017 3:31 PM ALARM TECHNICIAN Height 182.9 cm (6') 11/30/2017 3:31 PM ALARM TECHNICIAN Body Mass Index 29.84 11/30/2017 3:31 PM ALARM TECHNICIAN Plan of Treatment Health Maintenance Due Date Last Done Comments DTAP/TDAP/TD VACCINES (1 - Tdap) 1983 HPV/Cotest (21-29) 1985 CERVICAL CANCER SCREENING 1994 HPV/Cotest (30-65) 1994 PAP SMEAR 1994 COLORECTAL SCREENING 2009 Colorectal Cancer Screening 2009 FIT-DNA Q 3 years 2009 FIT/FOBT Q 1 year 2009 Flex Sig/CT Colonography Q 5 years 2009 ZOSTER VACCINE (1 of 2) 2014 BREAST CANCER SCREENING 07/25/2021 07/25/20 20, 05/29/2019, 05/30/2018, Additional history exists INFLUENZA VACCINE (#1) 2025 RSV VACCINE (60+ or ) (1 - 1-dose 75+ series) 2039 HEPATITIS B VACCINES Aged Out No long er eligible based on patient's age to complete this topic Procedures Procedure Name Priority Date/Time Associated Diagnosis Comments MAMMO DIAG UNI RIGHT 3D FARHAD W OR WO CAD Routine 07/25/2020 11:05 AM CDT Abnormal mammogram from Last 3 Months or Most Recently Relevant to Health Maintenance Results * MAMMO DIAG UNI RIGHT 3D FARHAD W OR WO CAD (07/25/2020 11:05 AM CDT) Anatomical Region Laterality Modality Breast Right Mammography 07/25/2020 11:0 5 AM CDT Impressions 07/25/2020 2:39 PM CDT IMPRESSION: Negative spot tomographic views of the right breast. Recommend annual follow-up. OVERALL FINAL ASSESSMENT: BI-RADS CATEGORY 1: Negative DICTATION LOCATION: [facility] Narrative 07/25/2020 2:39 PM CDT RIGHT DIAGNOSTIC DIGITAL MAMMOGRAMS WITH COMPUTER ASSISTED DIAGNOSIS WITH TOMOGRAPHY DATE: 07/25/2020 11:05 AM HISTORY: Abnormal outside screening mammogram. COMPARISON: Comparison is made with our previous films including 05/29/2019 through 02/19/2003. TECHNIQUE: Patient had a screening mammogram elsewhere on 07/16/2020 which described asymmetry in the outer right breast. She returns for further imaging with a mediolateral view and three spot views all with tomography. Low Dose full field Digital Breast tomosynthesis examination was performed with 2D and 3D acquisitions. Examination is read in conjunction with computer aided detection. BREAST COMPOSITION: FINDINGS: A small amount of asymmetry in the outer right breast is stable to is significantly diminished compared to multiple previous studies. No new mass, suspicious calcifications or areas of distortion are identified. Procedure Note Ritu Salamanca MD - 07/25/2020 RIGHT DIAGNOSTIC DIGITAL MAMMOGRAMS WITH COMPUTER ASSISTED DIAGNOSIS WITH TOMOGRAPHY DATE: 07/25/2020 11:05 AM HISTORY: Abnormal outside screening mammogram. COMPARISON: Comparison is made with our previous films including 05/29/2019 through 02/19/2003. TECHNIQUE: Patient had a screening mammogram elsewhere on 07/16/2020 which described asymmetry in the outer right breast. She returns for further imaging with a mediolateral view and three spot views all with tomography. Low Dose full field Digital Breast tomosynthesis examination was performed with 2D and 3D acquisitions. Examination is read in conjunction with computer aided detection. BREAST COMPOSITION: FINDINGS: A small amount of asymmetry in the outer right breast is stable to is significantly diminished compared to multiple previous studies. No new mass, suspicious calcifications or areas of distortion are identified. IMPRESSION: Negative spot tomographic views of the right breast. Recommend annual follow-up. OVERALL FINAL ASSESSMENT: BI-RADS CATEGORY 1: Negative DICTATION LOCATION: [facility] External Provider [facility] MAMMO ORDERABLES Final R esult from Last 3 Months or Most Recently Relevant to Health Maintenance Care Teams Engineering Leader Relationship Specialty Start Date End Date Kelli Munoz MD [address] [phone] PCP - General 10/24/15
--- OUTSIDE RECORDS SUMMARY | 2025-06-05 15:53 | XMS_ITS | Encounter Summary ---
Author Organization [facility] Address [address] [facility] Attn: [place] [address] Care Team Providers Care Outside Sales Name Role Phone Kelli Munoz MD Primary Care Provider [phone]- [phone] Encounter Details Date Type Department Care Team (Late st Contact Info) Description 09/02/1990 Outpatient Historical [facility], [place] [id number] [place] [id number] Social History Tobacco Use Types Packs/Day Years Used Date Smoking Tobacco: Never Assessed Comments Unknown Sex and Gender Information Value Date Recorded Sex Assigned at Not on file 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
--- OUTSIDE RECORDS SUMMARY | 2025-06-05 15:53 | XMS_ITS | Encounter Summary ---
Author Organization [facility] Address 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 [place], [place] [address] Admit Date: 02/26/2009 JOVI PASCAL Sex: F Admit Prov: LASHA MACKAY Date: 1965 Primary Care Prov: ROBERTA MÁRQUEZ CMRN: [id number] Room: CATE SSN: [id number] IMAGING SERVICES Ordering Prov: LASHA MACKAY Accession Number: [id number] Interpretation BILATERAL FULL FIELD DIGITAL SCREENING MAMMOGRAM WITH CAD. History: Routine Screening. Technique: Full field digital craniocaudal and mediolateral oblique projections of both breasts were obtained. Computer aided diagnosis was performed. Comparison: 02/2008, 02/2007, 02/2006 Breast Parenchymal Composition: Scattered fibroglandular densities. Findings: No suspicious mass, suspicious microcalcifications, or architectural distortion in either breast is identified. Since the prior study, there has been no significant interval change. The computer aided diagnosis detects no significant abnormality. Overall Assessment: BI-RADS category 1: Negative. IMPRESSION: Annual mammography is recommended. Assessment BIRADS: 1-Negative Recommendation: Normal interval follow-up Dictated by: MARRY MALONEY Electronically signed by: MARRY MALONEY 02/28/2009 14:37 Transcribed: 02/27/2009 21:43 AMK Procedure Note Marry Maloney - 02/28/2009 [id number] [place], [place] [address] Admit Date: 02/26/2009 JOVI PASCAL Sex: F Admit Prov: LASHA MACKAY Date: 1965 Primary Care Prov: ROBERTA MÁRQUEZ CMRN: [id number] Room: CATE SSN: [id number] IMAGING SERVICES Ordering Prov: LASHA MACKAY Interpretation BILATERAL FULL FIELD DIGITAL SCREENING MAMMOGRAM WITH CAD. History: Routine Screening. Technique: Full field digital craniocaudal and mediolateral oblique projections of both breasts were obtained. Computer aided diagnosiswas performed. Comparison: 02/2008, 02/2007, 02/2006 Breast Parenchymal Composition: Scattered fibroglandular densities. Findings: No suspicious mass, suspicious microcalcifications, or architectural distortion in either breast is identified. Since theprior study, there has been no significant interval change. The computeraided diagnosis detects no significant abnormality. Overall Assessment: BI-RADS category 1: Negative. IMPRESSION: Annual mammography is recommended. Assessment BIRADS: 1-Negative Recommendation: Normal interval follow-up Dictated by: MARRY MALONEY Electronically signed by: MARRY MALONEY 02/28/2009 14:37 Transcribed: 02/27/2009 21:43 AMK Lasha Mackay MD MAMMO ORDERABLES Final Result documented in this encounter Visit Diagnoses Diagnosis Other screening mammogram documented in this encounter Care Teams Label Sewer Relationship Specialty Start Date End Date Kelli Munoz MD [address] [phone] PCP - General 10/24/15 documented as of this encounter
--- OUTSIDE RECORDS SUMMARY | 2025-06-05 15:53 | XMS_ITS | Encounter Summary ---
Author Organization [facility] Address [address] [place] [address] Care Team Providers Care Cook Short Order Name Role Phone Kelli Munoz MD Primary Care Provider [phone]- [phone] Encounter Details Date Type Department Care Team (Latest Contact Info) Description 10/27/1998 Inpatient Historical HIS PATIENT IN A BED Lasha Sykes MD [address] [facility] [address] [place] [address] Unspecified indication for care or intervention related to labor and delivery, delivered (Primary Dx) Social History Tobacco Use Types Packs/Day Years Used Date Smoking Tobacco: Never Assessed Comments Unknown Sex and Gender Information Value Date Recorded Sex Assigned at Not on file 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 [place] [phone] PCP - General 10/24/15 documented as of this encounter
--- OUTSIDE RECORDS SUMMARY | 2025-06-05 15:53 | XMS_ITS | Encounter Summary ---
Author Organization [facility] Address [address] [place] [address] Care Team Providers Care Tongue Presser Name Role Phone Kelli Munoz MD Primary Care Provider [phone]- [phone] Encounter Details Date Type Department Care Team (Latest Contact Info) Description 02/28/2004 Outpatient Historical HIS [facility] Lasha Maguire MD [address] [facility] [address] [place] [address] MAMMOGRAPHIC MICROCALCIFICATION (Primary Dx) Social History Tobacco Use Types Packs/Day Years Used Date Smoking Tobacco: Never Assessed Comments Unknown Sex and Gender Information Value Date Recorded Sex Assigned at Not on file 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
--- OUTSIDE RECORDS SUMMARY | 2025-06-05 15:53 | XMS_ITS | Encounter Summary ---
Author Organization [facility] Address [address] [place] [address] Phone Care Team Providers Care Athletic Team Physician Name Role Phone Livan Jaeger MD Primary Care Provider +1- [phone] Gómez Gustafson MD Unavailable [phone] Livan Jaeger MD Primary Care Provider +- [phone] Javier Huddleston DO Unavailable [phone] Javier Meade MD Unavailable [phone] Beronica Gordon MD Unavailable + [phone] Mounika Alexandre MD Unavailable [phone] Joe Vincent MD Primary Care Provider Jeo Vincent MD Primary Care Provider Encounter Details Date Type Department Care Team (Late st Contact Info) Description 02/06/2018 Orders Only [facility] ProviderJose MD [address] [place] [address] Social History Tobacco Use Types Packs/Day Years Used Date Smoking Tobacco: Former Cigarettes Smokeless Tobacco: Never Comments:quit at age 29 Alcohol Use Standard Drinks/Week Comments Yes 6 (1 standard drink = 0.6 oz pur e alcohol) socially on weekends Comments Unknown Sex and Gender Information Value Date Recorded Sex Assigned at Not on file Legal Sex Female 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 us Historical Provider LAB BLOOD ORDERABLES Jo l Result documented in this encounter Visit Diagnoses Not on filedocumented in this encounter Care Teams Athletic Team Physician Relationship Specialty Start Date End Date Livan Jaeger MD [address] [place] [address] PCP - General Family Practice 12/14/17 03/08/19 Livan Jaeger MD [address] [place] [address] PCP - General Family Practice 03/09/19 02/19/21 Joe Vincent MD [address] [address] PCP - General Family Practice 02/20/21 02/20/21 Joe Vincent MD [address] [address] PCP - General Family Practice 02/23/21 Gómez Gustafson MD [address] [place] [address] Referring Physician Colon and Rectal Surgery 06/20/18 Javier Huddleston DO [address] [place] [address] Consulting Physician Gastroenterology 03/09/19 03/09/19 Javier Meade MD [address] [place] [address] Referring Physician Gastroenterology 03/09/19 Beronica Gordon MD [address] [place] [address] Endocrinology 06/11/19 12/29/22 Mounika Alexandre MD [address] [facility] [address] [place] [address] Consulting Physician Medical Oncology 12/11/20 documented as of this encounter
--- OUTSIDE RECORDS SUMMARY | 2025-06-05 15:53 | XMS_ITS | Clinical Summary ---
Author Organization [facility] Address [address], [facility] [address] [place] [address] Phone Care Team Providers Care Corporate Technical Recruiter Name Role Phone Donovan Chaudhry MD Unavailable Joe Vincent MD Primary Care Provider Allergies Active Allergy Reactions Criticality Noted Date Comments Ciprofloxacin Anaphylaxis High 01/05/2022 Penicillins Rash Medium 04/04/2019 Sulfa Antibiotics Rash Medium 04/04/2019 Sulfamethoxazole-Trimethoprim Hives Medium 2017 Medications losartan (COZAAR) 100 MG Tablet Take 100 mg by mouth every morning. Active levothyroxine (SYNTHROID) 100 MCG Tablet Take 1 Tab by mouth daily. Active Cholecalcifero l (VITAMIN D-3 PO) Take by mouth. Activ e Bystolic 5 MG Tablet every morning. 0 Active octreotide ACETATE (SandoSTATIN LAR) 20 MG Kit by Intramuscular route every 30 days. Active sertraline (ZOLOFT) 25 MG TabletIndicati ons:Social Anxiety Disorder Take 25 mg by mouth daily. Indications: Social Anxiety Disorder Active Probiotic Product (PROBIOTIC DAILY PO) Take by mouth. Activ e Active Problems No known active problems Immunizations Immunization Administration Dates Next Due Influenza Vaccine, MDCK,quadrivalent, pres free 08/30/2020 Family History Medical History Relation Name Comments Hypertension Brother Cirrhosis Father High Cholesterol Father Hypertension Father Liver Disease Father Cancer Maternal Grandfather throat Cancer Maternal Grandmother Hypertension Mother Parkinsonism Mother Heart Attack Paternal Grandfather Arthritis Paternal Grandmother Hypertension Sister No Known Problems Son 1 No Known Problems Son 2 No Known Problems Son 3 Relation Name Status Comments Brother Alive Father Maternal Grandfather Maternal Grandmother Mother Paternal Grandfather Paternal Grandmother Sister Son 1 Alive Son 2 Alive Son 3 Alive Social History Tobacco Use Types Packs/Day Years Used Date Smoking Tobacco: Former Cigarettes 0.5 14 0 05/20/1981 - 04/04/1995 Smokeless Tobacco: Never Tobacco Cessation:Counseling Given: No Alcohol Use Standard Drinks/Week Comments Yes 2 (1 standard drink = 0.6 oz pur e alcohol) Sexually Active Control Partners Comments Yes Male Comments No Sex and Gender Information Value Date Recorded Sex Assigned at Not on file 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 Gender Identity Not on file Sexual Orientation Not on file 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 Not on file Not on file Last Filed Vital Signs Vital Sign Reading Time Taken Comments Blood Pressure 121/81 06/10/2022 9:57 AM CDT Pulse 66 06/10/2022 9:57 AM CDT Temperature 36 C (96.8 F) 06/10/2022 9:57 AM CDT Respiratory Rate 19 06/10/2022 9:57 AM CDT Oxygen Saturation 100% 06/10/2022 9:57 AM CDT Inhaled Oxygen Concentration - - Weight 113.4 kg (250 lb) 06/10/2022 7:46 AM CDT Height 182.9 cm (6') 06/10/2022 7:46 AM CDT Body Mass Index 33.91 06/10/2022 7:46 AM CDT Plan of Treatment Upcoming Encounters Date Type Department Care Team (Late st Contact Info) Description 07/04/2025 10:00 AM CDT [facility] [address] [place] [address] Donovan Chaudhry MD [address] [address] 07/04/2025 10:00 AM CDT - 07/04/2025 10:30 AM CDT Surgery [facility] Periop [address] [place] [id number] Donovan Chaudhry MD [address] [address] COLONOSCOPY Scheduled Procedures Name Priority Associated Diagnoses Date/Ti me COLONOSCOPY PERSONAL HISTORY OF MALIGNANT CARCINOID TUMOR OF SMALL INTESTINE 07/04/2025 10:00 AM CDT Health Maintenance Due Date Last Done Comments Hepatitis C Virus (HCV) Screening 1964 TdaP Immunization 1964 Pap Smear 1985 Cervical Cancer Screening (CCS) 1994 HPV/Cotest 1994 Cologuard 2009 Immunochemical Fecal Occult Blood 2009 Pneumococcal Immunization (50+ years) (1 of 1 - PCV) 2014 Zoster Immunization (1 of 2) 2014 Mammogram 07/25/2021 07/25/2020 SARS-COV-2 Immunization ( season) 2024 03/30/2022, 10/06/2021, 01/24/2021, Additional history exists Colonoscopy 06/10/2025 06/10/2022, 0802/2022, 04/27/2019, Additional history exists Colorectal Cancer Screening 06/10/2025 Influenza Immunization (#1) 2025 08/30/2020, 1 Respiratory Syncytial Virus (RSV) Immunization (Adult) (1 - 1-dose 75+ series) 2039 Hepatitis B Immunization Aged Out No longer eligible based on patient's age to complete this topic Human Papillomavirus (HPV) Immunization Aged Out No longer eligible based on patient's age to complete this topic Meningococcal Immunization (ACWY) Aged Out No longer eligible based on patient's age to complete this topic Rotavirus Immunization Aged Out No lo nger eligible based on patient's age to complete this topic Insurance [facility] [facility] Care Teams Corporate Technical Recruiter Relationship Specialty Start Date End Date Joe Vincent MD [address] [address] PCP - General Family Medicine 06/07/22 Donovan Chaudhry MD [address] [address] Consulting Physician Colon and Rectal Surgery 05/14/22
--- OUTSIDE RECORDS SUMMARY | 2025-06-05 15:53 | XMS_ITS | Encounter Summary ---
Author Organization [facility] Address [address] [place] [address] Care Team Providers Care Paranormal Investigator Name Role Phone Gómez Gustafson MD Unavailable [phone] Livan Jaeger MD Primary Care Provider [phone] Javier Meade MD Unavailable [phone] Beronica Gordon MD Unavailable [phone] Mounika Alexandre MD Unavailable [phone] Joe Vincent MD Primary Care Provider Joe Vincent MD Primary Care Provider Encounter Details Date Type Department Care Team (Late st Contact Info) Description 10/28/2020 Telephone [facility] [address] [place] [id number] Gaviota Johnsno, RT Social History Tobacco Use Types Packs/Day Years Used Date Smoking Tobacco: Former Cigarettes Smokeless Tobacco: Never Comments:quit at age 29 Alcohol Use Standard Drinks/Week Comments Yes 6 (1 standard drink = 0.6 oz pur e alcohol) socially on weekends Comments No Sex and Gender Information Value Date Recorded Sex Assigned at Not on file 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 [address] [place] [address] PCP - General Family Practice 02/20/21 02/20/21 Joe Vincent MD [email or web address] [address] PCP - General Family Practice 02/23/21 Gómez Gustafson MD Referring Physician Colon and Rectal Surgery 06/20/18 Javier Meade MD [address] [place] [address] Referring Physician Gastroenterology 03/09/19 Beronica Gordon MD [address] [place] [address] Endocrinology 06/11/19 12/29/22 Mounika Alexandre MD [id number] [place] [address] Consulting Physician Medical Oncology 12/11/20 documented as of this encounter
--- OUTSIDE RECORDS SUMMARY | 2025-06-05 15:53 | XMS_ITS | Clinical Summary ---
Author Organization [place] [address] [address] [facility] [address] Address [address] [place] [address] Care Team Providers Care Welt Treater Name Role Phone Gómez Gustafson MD Unavailable [phone] Javier Meade MD Unavailable [phone] Mounika Alexandre MD Unavailable [phone] Joe Vincent MD Primary Care Provider Allergies Active Allergy Reactions Criticality Noted Date Comments Ciprofloxacin Anaphylaxis High 01/05/2022 Doxycycline Other (See comments) Medium 06/02/2023 Large bumps that were itchy Penicillins Hives,Rash Medium 11/30/2017 Sulfamethoxazole-Trimet hoprim Hives Medium 12/14/2017 Sulfa (Sulfonamide Antibiotics) Rash Medium Medications levothyroxine (SYNTHROID, LEVOTHROID) 100 mcg tablet Take 1 tablet (100 mcg total) by mouth daily before breakfast Active cholecalciferol (VITAMIN D-3) 1,000 unit tablet Take 1 tablet (1,000 Units total) by mouth daily with lunch Active octreotide LAR (SandoSTATIN LAR) 20 mg suspension,exten ded rel recon Inject into the muscle as instructed Active Lactobacillus acidophilus (PROBIOTIC ORAL) Take by mouth Active nebivoloL (BYSTOLIC) 5 mg tablet Take 1 tablet (5 mg total) by mouth daily 90 tablet 1 4 Active albuterol HFA (PROVENTIL HFA,VENTOLIN HFA,PROAIR HFA) 90 mcg/actuation inhaler INHALE 2 PUFFS BY MOUTH EVERY 4 HOURS NEEDED FOR SHORTNESS OF BREATH OR WHEEZING 4 Active hydroCHLOROthiaz william (HYDRODIURIL) 25 mg tablet Take 1 tablet (25 mg total) by mouth daily 4 Active hydrOXYzine (ATARAX) 10 mg tablet Take 1 tablet (10 mg total) by mouth 3 (three) times a day as needed 4 Active amLODIPine (NORVASC) 5 mg tabletIndication s:Hypertension, unspecified type Take 2 tablets (10 mg total) by mouth daily 180 tablet 3 4 Active losartan (COZAAR) 100 mg tablet TAKE ONE TABLET (100 MG TOTAL) BY MOUTH DAILY 90 tablet 1 5 Active Active Problems Problem Noted Date Diagnosed Date Family history of hemochromatosis 01/10/2025 Family history of colon cancer 01/10/2025 IPMN (intraductal papillary mucinous neoplasm) 0 02/13/2024 Systolic murmur 07/28/2023 Mixed hyperlipidemia 05/02/2023 Lymphedema, not elsewhere classified 08/04/2022 Lipedema 08/04/2022 Assessment & Plan (08/04/2022 10:48 AM CDT): Bilateral lower extremity swelling that stops at the ankles, no evidence of chronic venous insufficiency clinically she did have a small segment of right GSV reflux however given how her legs look I think she has a component of lipedema and lymphedema. Her swelling would not be explained by calf reflux in 1 leg. We discussed the importance of compression therapy. Continue compression stockings and her compression pumps. Can follow-up p.r.n.. History of 2019 novel coronavirus disease (COVID -19) 07/24/2021 Medication side effect 07/24/2021 Localized edema 07/24/2021 Class 2 severe obesity due t o excess calories with serious comorbidity and body mass index (BMI) of 37.0 to 37.9 in adult 04/28/2021 SOB (shortness of breath) 04/28/2021 Carcinoid tumor 04/28/2021 Lipid screening 01/06/2021 Neuroendocrine cancer (CMS/HCC) 05/02/2020 Lesion of lumbar spine 06/19/2018 Malignant carcinoid tumor of ileum 02/17/2018 GERD (gastroesophageal reflux disease) 8 Snoring 08/03/2016 Palpitations 11/06/2015 Facial paresthesia 10/30/2014 Chest pain 08/30/2014 Essential hypertension 08/26/2014 Gastroesophageal reflux disease 08/26/2014 Postoperative hypothyroidism 03/23/2014 Overview (02/09/2017): POSTSURGICAL HYPOTHYROID Vitamin D deficiency 03/23/2014 Overview (02/11/2017): VITAMIN D DEFICIENCY NOS 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 Lab [address] [place] [address] Neuroendocrine cancer (HCC) 05/20/2025 Orders Only [facility] Oncology [address] [facility] Floor 5 [place] [address] Mounika Alexandre MD 05/08/2025 Results Follow-Up [facility] Cardiology [address] [facility] [address], [place] [address] Kiarra Nogueira NP Lipid panel 05/07/2025 Orders Only [facility] Oncology [address] [place] [phone] Zachary Hernandez 05/07/2025 Orders Only [facility] Oncology [address] [place] [phone] Mounika Alexandre MD Neuroendocrine cancer (HCC) (Primary Dx) 05/06/2025 12:00 PM CDT Infusion [facility] at [facility] [address] [place] [address] Neuroendocrine cancer (HCC) (Primary Dx) 05/06/2025 11:30 AM CDT Lab [facility] Lab [address] [place] [phone] Neuroendocrine cancer (HCC) 05/03/2025 9:15 AM CDT Office Visit [facility] Cardiology [address] [place] [address] Gómez Brito MD Essential hypertension (Primary Dx); Mixed hyperlipidemia; Palpitations; Class 2 severe obesity due to excess calories with serious comorbidity and body mass index (BMI) of 37.0 to 37.9 in adult (HCC); Malignant carcinoid tumor of ileum (HCC); Postoperative hypothyroidism 04/17/2025 Orders Only [facility] Oncology [address] [facility] Floor 1, [address] [place] [phone] Mounika Alexandre MD 04/08/2025 10:15 AM CDT Infusion [facility] [place] [address] [place] [address] Neuroendocrine cancer (HCC) (Primary Dx) 04/08/2025 9:45 AM CDT Office Visit [facility] Oncology [facility] [place] [address] Mounika Alexandre MD Neuroendocrine cancer (HCC) (Primary Dx) 04/08/2025 9:15 AM CDT Lab [facility] Lab [address] [place] [phone] Neuroendocrine cancer (HCC) 04/08/2025 Orders Only [facility] Oncology [facility] [place] [address] Zachary Hernandez 03/22/2025 7:09 AM CDT - 03/22/2025 11:59 PM CDT Hospital [facility] [address] [place] [id number] 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) Discharge Disposition: Discharge to home or self care 03/22/2025 7:08 AM CDT - 03/22/2025 11:59 PM CDT Hospital Encounter [facility] [address] [place] [address] 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) Discharge Disposition: Discharge to home or self care 03/13/2025 Orders Only [facility] Oncology [address] [facility] Floor 5 [place] [address] Zachary Hernandez from Last 3 Months Immunizations Immunization Administration Dates Next Due Influenza, Quadrivalent, Jacquelin l Culture-based MDCK, Preservative Free, Antibiotic Free, Intramuscular 08/17/2023,08/30/2020 Influenza, Quadrivalent, Split, Intramuscular Influenza, Quadrivalent, Spl it, Preservative Free, Intramuscular 09/04/2019 Influenza, Trivalent, Cell C ulture-based MDCK, Preservative Free, Antibiotic Free, Intramuscular 08/30/2020 Moderna SARS-CoV-2 Monovalent Vaccination (12+ Y RS) 01/17/2021,12/27/2020 Surgical History Surgery Date Site/Laterality Comments THYROIDECTOMY 11/07/2002 - 11/06/2003 Left CHOLECYSTECTOMY 11/07/2011 - 11/06/2012 US GUIDED BIOPSY LIVER 05/16/2020 N/A US GUIDED BIOPSY LIVER 09/29/2020 N/A EMBOLIZATION ORGAN ISCHEMIA OR INFARCTION 12/16/2021 N/A EMBOLIZATION ORGAN ISCHEMIA OR INFARCTION 01/05/2022 N/A COLON SURGERY 2018 SMALL INTESTINE SURGERY 2018 Medical History Medical History Date Comments Disorder of thyroid Essential hypertension 12/28/2017 GERD (gastroesophageal reflux disease) 8 Anxiety Neuroendocrine carcinoma (HCC) Arthritis Family History Medical History Relation Name Comments Hypertension Brother Cirrhosis Father Dad Depression Father Dad Hypertension Father Dad Liver cancer Father Dad contributed to at 63 Oral cancer Maternal Grandfather COD at 50 Stomach cancer Maternal Grandmother Tari (vs s ome other abdominal site?) Arthritis Mother Mom Hypertension Mother Mom Parkinsonism Mother Mom Colon cancer Mother's Brother Rogelio COD at 72 Hyperlipidemia Other Heart attack Paternal Grandfather Ed Schemmer No Known Problems Paternal Grandmother Hypertension Sister Meme Sudden Cardiac Sister Meme CVA or RI? Suspected hemochromatosis Son 1 Rudy ge netic testing results pending Hemochromatosis Son 2 Pepito No Known Problems Son 3 Paul Relation Name Status Comments Brother Alive Father Dad (Age 63) Maternal Grandfather (Age 50) Maternal Grandmother Tari (Age 93) Mother Mom (Age 87) Mother's Brother Rogelio (Age 72) Other Paternal Grandfather Ed Schemmer (Age 65) Paternal Grandmother (Age 92) Sister Meme (Age 59) Son 1 Rudy Alive Son 2 Pepito Alive Son 3 Paul Alive Social History Tobacco Use Types Packs/Day Years Used Date Smoking Tobacco: Former Cigarettes 0.5 15 Smokeless Tobacco: Never Tobacco Cessation:Counseling Given: Not Answered Comments:quit at age 29 Alcohol Use Standard Drinks/Week Comments Yes 6 (1 standard drink = 0.6 oz pur e alcohol) socially on weekends Comments No Sex and Gender Information Value Date Recorded Sex Assigned at Not on file Legal Sex Female 11:24 PM NOC ANALYST Gender Identity Female 11/10/2020 11:18 AM NOC ANALYST Sexual Orientation Not on file Obstetrics History Last Filed Vital Signs Vital Sign [place] Time Taken Comments Blood Pressure 136/85 06/03/2025 11:39 AM CDT Pulse 55 06/03/2025 11:39 AM CDT Temperature 36.7 C (98.1 F) 06/03/2025 11:39 AM CDT Respiratory Rate 16 06/03/2025 11:3 9 AM CDT Oxygen Saturation 99% 06/03/2025 11: 39 AM CDT Inhaled Oxygen Concentration - - Weight 126.3 kg (278 lb 6.4 oz) 025 11:39 AM CDT Height 180.3 cm (5' 11) 05/03/2025 9:12 AM CDT Body Mass Index 38.83 05/03/2025 9:12 AM CDT Plan of Treatment Health Maintenance Due Date Last Done Comments Cervical Cancer Screening 1964 Colon Cancer Screening-Colonoscopy 1964 Depression Screening 1964 Hepatitis C Screening 1964 DTaP/Tdap/Td Vaccine (1 - Tdap) 1975 Hepatitis B Screening 1982 Regular Well Visit/Exam 18-64 1982 Pneumococcal vaccine <65 (1 of 2 - PCV) 1983 Zoster Vaccine (1 of 2) 1983 Breast Cancer Screening-Mammogram 05/29/2020 05/29/2019, 05/30/2018, 05/30/2018, Additional history exists Covid-19 Vaccine (3 - Modern a risk series) 02/14/2021 01/17/2021, 12/27/2020 Influenza Vaccine (#1) 2025 3, 08/30/2020, 08/30/2020, Additional history exists Medical Devices Implanted Type Area Account Services Associate Device Identifier Shelf Expiration Date Model / Serial / Lot OOTU Gabriel [id number] Device Closure Angio-Seal Vip Bondek-Plus Polyglyd L70 Cm Od6 Fr Odsec.035 In Vascular - [id number] Implanted:Qty: 1 on 12/16/[address] [facility] gBox 07/07/2022 [id number] / / [id number] [employer] [facility] Prefill Saline Syringe Compressible Nonaggregate - [id number] Implanted:Qty: 1 on 01/05/[address] [facility] Tasted Menu 07/13/2024 [id number] / / [id number] Angio-Seal Vip 6fr Closure Device-[id number] Implanted:Qty: 1 on 01/05/2022 at [facility] [employer] 10/06/2022 [id number] / / [id number] Procedures Procedure Name Priority Date/Time Associated Diagnosis Comments EGFR STAT 06/03/2025 11:30 AM CDT Neuroendocrine cancer (HCC) DIFFERENTIAL AUTO STAT 06/03/2025 11:30 AM CDT Neuroendocrine cancer (HCC) CBC WITH AUTO DIFFERENTIAL STAT 06/03/2025 11:30 AM CDT Neuroendocrine cancer (HCC) COMPREHENSIVE METABOLIC PANEL STAT 06/03/2025 11:30 AM CDT Neuroendocrine cancer (HCC) EGFR STAT 05/06/2025 11:27 AM CDT Neuroendocrine cancer (HCC) DIFFERENTIAL AUTO STAT 05/06/2025 11:27 AM CDT Neuroendocrine cancer (HCC) CBC WITH AUTO DIFFERENTIAL STAT 05/06/2025 11:27 AM CDT Neuroendocrine cancer (HCC) COMPREHENSIVE METABOLIC PANEL STAT 05/06/2025 11:27 AM CDT Neuroendocrine cancer (HCC) LIPID PANEL Routine 05/03/2025 9:43 AM CDT Mixed hyperlipidemia EGFR STAT 04/08/2025 9:12 AM CDT Neuroendocrine cancer (HCC) DIFFERENTIAL AUTO STAT 04/08/2025 9:1 2 AM CDT Neuroendocrine cancer (HCC) CBC WITH AUTO DIFFERENTIAL STAT 04/08/2025 9:12 AM CDT Neuroendocrine cancer (HCC) COMPREHENSIVE METABOLIC PANEL STAT 04/08/2025 9:12 AM CDT Neuroendocrine cancer (HCC) MRI ABDOMEN W WO CONTRAST Schedule Routine, Read Routine (OP Routine) 03/22/2025 9:25 AM CDT 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 73 m2 Comment: Interpretive Data Reference Interval Normal >/= 90 mL/min/1.73m2 Mildly decreased* 60 - 89 mL/min/1.73m2 Mildly to moderately decreased 45 - 59 mL/min/1.73m2 Moderately to severely decreased 30 - 44 mL/min/1.73m2 Severely decreased 15 - 29 mL/min/1.73m2 Kidney Failure < 15 mL/min/1.73m2 *Relative to young adult level Estimated glomerular filtration rate is determined by the 2020 CKD-EPI equation recommended by the National Kidney Foundation (A Unifying Approach to GFR Estimation: Recommendations of the NKF-ASK Task Force on Reassessing the Inclusion of Race in Diagnosing Kidney Disease, JASN 2020). The CKD-EPI equation should not be used for patients with unstable renal function and has not been validated in children and those over 70. Current interpretive data was last reviewed 2021. Testing performed by: [facility] [place] [address] Blood 06/03/2025 11:3 0 AM CDT 06/03/2025 11:30 AM CDT us Mounika Alexandre MD LAB BLOOD ORDERABLES Jo muñoz Result [facility] [address] Department of Laboratories [place], [place] [id number] * Differential, auto (06/03/2025 11:30 AM CDT) Neutrophil abs 3.18 1.50 - 6.50 K/cumm Comment:Testing performed by : [facility] [place] [address] Imm gran abs 0.02 0.00 - 0.10 K/cumm [facility] Comment:Testing performed by : [facility] [place] [address] Lymphocyte abs 1.76 0.80 - 3.30 K/cumm [facility] performed by : [facility] [place] [address] Monocyte abs 0.49 0.20 - 0.80 K/cumm CERYENNY Comment:Testing performed by : [facility] [place] [address] Eosinophil abs 0.15 0.00 - 0.50 K/cumm CERYENNY Comment:Testing performed by : [facility] [place] [address] Basophil abs 0.08 0.00 - 0.10 K/cumm CERYENNY Comment:Testing performed by : [facility] [place] [address] Neutrophil pct 56.0 % [facility] CH Comment: Interpretive Data Percent cell count reference ranges are not reported, since discordance with absolute values may lead to misinterpretation of CBC data. Current Interpretive Data was last revised on 2018. Testing performed by: [facility] [place] [address] Imm gran pct 0.4 % [facility] CH Comment: Interpretive Data Percent cell count reference ranges are not reported, since discordance with absolute values may lead to misinterpretation of CBC data. Current Interpretive Data was last revised on 2018. Testing performed by: [facility] [place] [address] Lymphocyte pct 31.0 % [facility] CH Comment: Interpretive Data Percent cell count reference ranges are not reported, since discordance with absolute values may lead to misinterpretation of CBC data. Current Interpretive Data was last revised on 2018. Testing performed by: [facility] [place] [address] Monocyte pct 8.6 % C[facility] CH Comment: Interpretive Data Percent cell count reference ranges are not reported, since discordance with absolute values may lead to misinterpretation of CBC data. Current Interpretive Data was last revised on 2018. Testing performed by: [facility] [place] [address] Eosinophil pct 2.6 % [facility] CH Comment: Interpretive Data Percent cell count reference ranges are not reported, since discordance with absolute values may lead to misinterpretation of CBC data. Current Interpretive Data was last revised on 2018. Testing performed by: [facility] [place] [address] Basophil pct 1.4 % [facility] CH Comment: Interpretive Data Percent cell count reference ranges are not reported, since discordance with absolute values may lead to misinterpretation of CBC data. Current Interpretive Data was last revised on 2018. Testing performed by: [facility] [place] [address] Blood 06/03/2025 11:3 0 AM CDT 06/03/2025 11:30 AM CDT Mounika Alexandre MD LAB BLOOD ORDERABLES Jo toni Result [facility] [address] [place] [address] * CBC with auto differential (06/03/2025 11:30 AM CDT) WBC 5.68 3.80 - 9.90 K/cumm Comment:Testing performed by : [facility] [place] [address] Hgb 12.7 11.9 - 15.5 g/dL [facility] CH Comment:Testing performed by : [facility] [place] [address] Hct 38.2 35.6 - 45.5 % [facility] CH Comment:Testing performed by : [facility] [place] [address] Plt 204 150 - 400 K/cumm [facility] CH Comment:Testing performed by : [facility] [place] [address] MPV 9.7 9.1 - 12.3 fL [facility] Comment:Testing performed by : [facility] [place] [address] RBC 4.07 3.90 - 5.20 M/cumm [facility] Comment:Testing performed by : [facility] [place] [address] MCV 93.9 81.3 - 96.4 fL [facility] Comment:Testing performed by : [facility] [place] [address] MCH 31.2 27.1 - 33.3 pg [facility] Comment:Testing performed by : [facility] [place] [address] MCHC 33.2 32.3 - 35.7 g/dL [facility] Comment:Testing performed by : [facility] [place] [address] RDW CV 12.4 11.1 - 14.9 % [facility] Comment:Testing performed by : [facility] [place] [address] RDW SD 42.8 35.7 - 48.1 fL [facility] Comment:Testing performed by : [facility] [place] [address] NRBC abs 0.00 0.00 - 0.01 K/cumm [facility] Comment:Testing performed by : [facility] [place] [address] ANC Prelim 3.18 1.50 - 6.50 K/cumm [facility] Comment: Interpretive Data The rapid ANC is a preliminary automated count and may vary from the final ANC (Neut Abs) reported in the WBC differential that follows. Current interpretive data was last revised 2025. Testing performed by: [facility] [place] [address] Morphologic Screen Results confirmed by manual morphology review. [facility] Comment:Testing performed by : [facility] [place] [address] Blood 06/03/2025 11:3 0 AM CDT 06/03/2025 11:30 AM CDT Mounika Alexandre MD LAB BLOOD ORDERABLES Edit ed Result - Final [facility] [address] [place] [address] * Comprehensive metabolic panel (06/03/2025 11:30 AM CDT) Sodium 138 135 - 145 mmol/L Comment:Testing performed by : [facility] [place] [address] Potassium, pl 4.3 3.3 - 4.9 mmol/L [facility] Comment:Testing performed by : [facility] [place] [address] Chloride 102 97 - 110 mmol/L [facility] Comment:Testing performed by : [facility] [place] [address] CO2 22 22 - 32 mmol/L [facility] Comment:Testing performed by : [facility] [place] [address] Anion gap 14 2 - 15 mmol/L [facility] Comment:Testing performed by : [facility] [place] [address] BUN 16 6 - 25 mg/dL [facility] Comment:Testing performed by : [facility] [place] [address] Creatinine 0.95 0.60 - 1.10 mg/dL [facility] CH Comment:Testing performed by : [facility] [place] [address] Glucose 115 70 - 199 mg/dL C[facility] CH Comment: Interpretive Data Fasting glucose >/= 126 mg/dl is diagnostic for diabetes. Fasting is defined as no caloric intake for at least 8 hours. Fasting glucose between 100 mg/dl to 125 mg/dl is diagnostic of prediabetes. In a patient with classic symptoms of hyperglycemia or hyperglycemic crisis, a random glucose >/= 200 mg/dl is diagnostic for diabetes. In the absence of unequivocal hyperglycemia, results should be confirmed by repeat testing. The classification and Diagnosis of Diabetes Diabetes Care 202; 46: S19-S40. Current interpretive data was last revised 2022. Testing performed by: [facility] [place] [address] Calcium 9.2 8.5 - 10.3 mg/dL CERNER CH Comment: Corrected results due to instrument issue. Notified Nicci Jameson. 06/03/2025 15:10:36 JESTRobles Cyr Testing performed by: [facility] [place] [address] Bilirubin, total 0.5 0.1 - 1.2 mg/dL [facility] Comment:Testing performed by : [facility] [place] [address] Protein, pl 7.1 6.5 - 8.5 g/dL [facility] Comment:Testing performed by : [facility] [place] [address] Albumin 4.4 3.5 - 5.0 g/dL [facility] Comment:Testing performed by : [facility] [place] [address] Alk phos 59 40 - 130 Units/L [facility] Comment:Testing performed by : [facility] [place] [address] ALT 21 7 - 45 Units/L [facility] CH Comment:Testing performed by : [facility] [place] [address] AST 25 10 - 45 Units/L [facility] CH Comment:Testing performed by : [facility] [place] [address] Blood 06/03/2025 11:3 0 AM CDT 06/03/2025 11:30 AM CDT Mounika Alexandre MD LAB BLOOD ORDERABLES Edit ed Result - Final [facility] [id number] [place] [address] * eGFR (05/06/2025 11:27 AM CDT) eGFR 70 >=60 mL/min/1. 73 m2 Comment: Interpretive Data Reference Interval Normal >/= 90 mL/min/1.73m2 Mildly decreased* 60 - 89 mL/min/1.73m2 Mildly to moderately decreased 45 - 59 mL/min/1.73m2 Moderately to severely decreased 30 - 44 mL/min/1.73m2 Severely decreased 15 - 29 mL/min/1.73m2 Kidney Failure < 15 mL/min/1.73m2 *Relative to young adult level Estimated glomerular filtration rate is determined by the 2020 CKD-EPI equation recommended by the National Kidney Foundation (A Unifying Approach to GFR Estimation: Recommendations of the NKF-ASK Task Force on Reassessing the Inclusion of Race in Diagnosing Kidney Disease, JASN 2020). The CKD-EPI equation should not be used for patients with unstable renal function and has not been validated in children and those over 70. Current interpretive data was last reviewed 2021. Testing performed by: [facility] at [facility], [place] [address] Blood 05/06/2025 11:2 7 AM CDT 05/06/2025 11:27 AM CDT Mounika Alexandre MD LAB BLOOD ORDERABLES Jo l Result [facility] [address] [place] [address] * Differential, auto (05/06/2025 11:27 AM CDT) [facility] Neutrophil abs 2.90 1.50 - 6.50 K/cumm Comment:Testing performed by : [facility] [place] [address] Imm gran abs 0.02 0.00 - 0.10 K/cumm C[facility] CH Comment:Testing performed by : [facility] [place] [address] Lymphocyte abs 1.51 0.80 - 3.30 K/cumm [facility] CH Comment:Testing performed by : [facility] [place] [address] Monocyte abs 0.38 0.20 - 0.80 K/cumm [facility] Comment:Testing performed by : [facility] [place] [address] Eosinophil abs 0.22 0.00 - 0.50 K/cumm CERNER CH Comment:Testing performed by : [facility] [place] [address] Basophil abs 0.09 0.00 - 0.10 K/cumm CERNER CH Comment:Testing performed by : [facility] [place] [address] Neutrophil pct 56.6 % CERNER CH Comment: Interpretive Data Percent cell count reference ranges are not reported, since discordance with absolute values may lead to misinterpretation of CBC data. Current Interpretive Data was last revised on 2018. Testing performed by: [facility] [place] [address] Imm gran pct 0.4 % CERNER CH Comment: Interpretive Data Percent cell count reference ranges are not reported, since discordance with absolute values may lead to misinterpretation of CBC data. Current Interpretive Data was last revised on 2018. Testing performed by: [facility] [place] [address] Lymphocyte pct 29.5 % CERNER CH Comment: Interpretive Data Percent cell count reference ranges are not reported, since discordance with absolute values may lead to misinterpretation of CBC data. Current Interpretive Data was last revised on 2018. Testing performed by: [facility] [place] [address] Monocyte pct 7.4 % CERNER CH Comment: Interpretive Data Percent cell count reference ranges are not reported, since discordance with absolute values may lead to misinterpretation of CBC data. Current Interpretive Data was last revised on 2018. Testing performed by: [facility] [place] [address] Eosinophil pct 4.3 % JG Comment: Interpretive Data Percent cell count reference ranges are not reported, since discordance with absolute values may lead to misinterpretation of CBC data. Current Interpretive Data was last revised on 2018. Testing performed by: [facility] [place] [address] Basophil pct 1.8 % JG Comment: Interpretive Data Percent cell count reference ranges are not reported, since discordance with absolute values may lead to misinterpretation of CBC data. Current Interpretive Data was last revised on 2018. Testing performed by: [facility] [place] [address] Blood 05/06/2025 11:2 7 AM CDT 05/06/2025 11:27 AM CDT Mounika Alexandre MD LAB [place]LOOD [place] [id number] [address] [place] [address] * CBC with auto differential (05/06/2025 11:27 AM CDT) WBC 5.12 3.80 - 9.90 K/cumm Comment:Testing performed by : [facility] [place] [address] Hgb 12.7 11.9 - 15.5 g/dL JG GLEASON Comment:Testing performed by : [facility] [place] [address] Hct 37.7 35.6 - 45.5 % JG Comment:Testing performed by : [facility] [place] [address] Plt 231 150 - 400 K/cumm JG GLEASON Comment:Testing performed by : [facility] [place] [address] MPV 9.5 9.1 - 12.3 fL JG GLEASON Comment:Testing performed by : [facility] [place] [address] RBC 4.07 3.90 - 5.20 M/cumm JG CH Comment:Testing performed by : [facility] [place] [address] MCV 92.6 81.3 - 96.4 fL JG CH Comment:Testing performed by : [facility] [place] [address] MCH 31.2 27.1 - 33.3 pg JG CH Comment:Testing performed by : [facility] [place] [address] MCHC 33.7 32.3 - 35.7 g/dL JG CH Comment:Testing performed by : [facility] [place] [address] RDW CV 12.4 11.1 - 14.9 % JG CH Comment:Testing performed by : [facility] [place] [address] RDW SD 41.9 35.7 - 48.1 fL JG CH Comment:Testing performed by : [facility] [place] [address] NRBC abs 0.00 0.00 - 0.01 K/cumm JG CH Comment:Testing performed by : [facility] [place] [address] ANC Prelim 2.90 1.50 - 6.50 K/cumm JG Comment: Interpretive Data The rapid ANC is a preliminary automated count and may vary from the final ANC (Neut Abs) reported in the WBC differential that follows. Current interpretive data was last revised 2025. Testing performed by: [facility] [place] [address] Blood 05/06/2025 11:2 7 AM CDT 05/06/2025 11:27 AM CDT us Mounika Alexandre MD LAB BLOOD ORDERABLES [place] [id number] [address] [place] [address] * Comprehensive metabolic panel (05/06/2025 11:27 AM CDT) Sodium 136 135 - 145 mmol/L Comment:Testing performed by : [facility] [place] [address] Potassium, pl 4.5 3.3 - 4.9 mmol/L CERNER CH Comment:Testing performed by : [facility] [place] [address] Chloride 99 97 - 110 mmol/L CERNER CH Comment:Testing performed by : [facility] [place] [address] CO2 24 22 - 32 mmol/L CERNER CH Comment:Testing performed by : [facility] [place] [address] Anion gap 13 2 - 15 mmol/L CERNER CH Comment:Testing performed by : [facility] [place] [address] BUN 15 6 - 25 mg/dL CERNER CH Comment:Testing performed by : [facility] [place] [address] Creatinine 0.93 0.60 - 1.10 mg/dL CERNER CH Comment:Testing performed by : [facility] [place] [address] Glucose 103 70 - 199 mg/dL CERNER Comment: Interpretive Data Fasting glucose >/= 126 mg/dl is diagnostic for diabetes. Fasting is defined as no caloric intake for at least 8 hours. Fasting glucose between 100 mg/dl to 125 mg/dl is diagnostic of prediabetes. In a patient with classic symptoms of hyperglycemia or hyperglycemic crisis, a random glucose >/= 200 mg/dl is diagnostic for diabetes. In the absence of unequivocal hyperglycemia, results should be confirmed by repeat testing. The classification and Diagnosis of Diabetes Diabetes Care 202; 46: S19-S40. Current interpretive data was last revised 2022. Testing performed by: [facility] [place] [address] Calcium 9.2 8.5 - 10.3 mg/dL CERNER CH Comment:Testing performed by : [facility] [place] [address] Bilirubin, total 0.4 0.1 - 1.2 mg/dL CERNER CH Comment:Testing performed by : [facility] [place] [address] Protein, pl 7.1 6.5 - 8.5 g/dL CERNER CH Comment:Testing performed by : [facility] [place] [address] Albumin 4.4 3.5 - 5.0 g/dL CERNER CH Comment:Testing performed by : [facility] [place] [address] Alk phos 72 40 - 130 Units/L CERNER CH Comment:Testing performed by : [facility] [place] [address] ALT 25 7 - 45 Units/L CERNER CH Comment:Testing performed by : [facility] [place] [address] AST 22 10 - 45 Units/L CERNER CH Comment:Testing performed by : [facility] [place] [address] Blood 05/06/2025 11:2 7 AM CDT 05/06/2025 11:27 AM CDT Mounika Alexandre MD LAB BLOOD ORDERABLES Jo l Result [facility] [address] [address] [place] [address] * Lipid panel (05/03/2025 9:43 AM CDT) Cholesterol 169 <200 mg/dL [facility] HDL 61 > OR = 50 mg/dL [facility] Triglycerides 110 <150 mg/dL [facility] LDL 87 mg/dL (calc) [facility] Comment: Reference range: <100 Desirable range <100 mg/dL for primary prevention; <70 mg/dL for patients with CHD or diabetic patients with > or = 2 CHD risk factors. LDL-C is now calculated using the Sp calculation, which is a validated novel method providing better accuracy than the Friedewald equation in the estimation of LDL-C. Lamberto GRIMES et al. HEATHER. 2013;310(19): 4732-8875 (http://education.[employer]com/faq/CZS305) Chol/HDL ratio 2.8 <5.0 (calc) [facility] Non-HDL, (LDL+VLDL) 108 <130 mg/dL (calc) [facility] Comment: For patients with diabetes plus 1 major ASCVD risk factor, treating to a non-HDL-C goal of <100 mg/dL (LDL-C of <70 mg/dL) is considered a therapeutic option. Blood 05/03/2025 9:43 AM CDT 05/03/2025 9:43 AM CDT us Gómez Brito MD LAB BLOOD ORDERABLES Jo l Result [facility] [address] [place] [address] * eGFR (04/08/2025 9:12 AM CDT) eGFR 66 >=60 mL/min/1. 73 m2 Comment: Interpretive Data Reference Interval Normal >/= 90 mL/min/1.73m2 Mildly decreased* 60 - 89 mL/min/1.73m2 Mildly to moderately decreased 45 - 59 mL/min/1.73m2 Moderately to severely decreased 30 - 44 mL/min/1.73m2 Severely decreased 15 - 29 mL/min/1.73m2 Kidney Failure < 15 mL/min/1.73m2 *Relative to young adult level Estimated glomerular filtration rate is determined by the 2020 CKD-EPI equation recommended by the National Kidney [employer] (A Unifying Approach to GFR Estimation: Recommendations of the NKF-ASK Task Force on Reassessing the Inclusion of Race in Diagnosing Kidney Disease, JASN 2020). The CKD-EPI equation should not be used for patients with unstable renal function and has not been validated in children and those over 70. Current interpretive data was last reviewed 2021. Testing performed by: [facility], [place] [address] Blood 04/08/2025 9:12 AM CDT 04/08/2025 9:12 AM CDT us Mounika Alexandre MD LAB BLOOD ORDERABLES Jo muñoz Result [facility] [id number] [address] Department of Laboratories [place] [id number] * Differential, auto (04/08/2025 9:12 AM CDT) Neutrophil abs 2.68 1.50 - 6.50 K/cumm Comment:Testing performed by : [facility] [place] [address] Imm gran abs 0.04 0.00 - 0.10 K/cumm CERNER Comment:Testing performed by : [facility] [place] [address] Lymphocyte abs 1.35 0.80 - 3.30 K/cumm CERNER Comment:Testing performed by : [facility] [place] [address] Monocyte abs 0.36 0.20 - 0.80 K/cumm CERNER CH Comment:Testing performed by : [facility] [place] [address] Eosinophil abs 0.27 0.00 - 0.50 K/cumm CERNER Comment:Testing performed by : [facility] [place] [address] Basophil abs 0.07 0.00 - 0.10 K/cumm CERNER Comment:Testing performed by : [facility] [place] [address] Neutrophil pct 56.2 % CERNER Comment: Interpretive Data Percent cell count reference ranges are not reported, since discordance with absolute values may lead to misinterpretation of CBC data. Current Interpretive Data was last revised on 2018. Testing performed by: [facility] [place] [address] Imm gran pct 0.8 % CERNER Comment: Interpretive Data Percent cell count reference ranges are not reported, since discordance with absolute values may lead to misinterpretation of CBC data. Current Interpretive Data was last revised on 2018. Testing performed by: [facility] [place] [address] Lymphocyte pct 28.3 % CERNER Comment: Interpretive Data Percent cell count reference ranges are not reported, since discordance with absolute values may lead to misinterpretation of CBC data. Current Interpretive Data was last revised on 2018. Testing performed by: [facility] [place] [address] Monocyte pct 7.5 % JG Comment: Interpretive Data Percent cell count reference ranges are not reported, since discordance with absolute values may lead to misinterpretation of CBC data. Current Interpretive Data was last revised on 2018. Testing performed by: [facility] [place] [address] Eosinophil pct 5.7 % JG Comment: Interpretive Data Percent cell count reference ranges are not reported, since discordance with absolute values may lead to misinterpretation of CBC data. Current Interpretive Data was last revised on 2018. Testing performed by: [facility] [place] [address] Basophil pct 1.5 % JG Comment: Interpretive Data Percent cell count reference ranges are not reported, since discordance with absolute values may lead to misinterpretation of CBC data. Current Interpretive Data was last revised on 2018. Testing performed by: [facility] [place] [address] Blood 04/08/2025 9:12 AM CDT 04/08/2025 9:12 AM CDT Mounika Alexandre MD LAB BLOOD ORDERABLES Jo muñoz Result [facility] [address] [address] Department of Laboratories [place], [place] [id number] * CBC with auto differential (04/08/2025 9:12 AM CDT) WBC 4.77 3.80 - 9.90 K/cumm Comment:Testing performed by : [facility] [place] [address] Hgb 12.4 11.9 - 15.5 g/dL JG Comment:Testing performed by : [facility] [place] [address] Hct 37.6 35.6 - 45.5 % CERNER CH Comment:Testing performed by : [facility] [place] [address] Plt 191 150 - 400 K/cumm CERNER CH Comment:Testing performed by : [facility] [place] [address] MPV 9.7 9.1 - 12.3 fL CERNER CH Comment:Testing performed by : [facility] [place] [address] RBC 4.01 3.90 - 5.20 M/cumm CERNER CH Comment:Testing performed by : [facility] [place] [address] MCV 93.8 81.3 - 96.4 fL CERNER CH Comment:Testing performed by : [facility] [place] [address] MCH 30.9 27.1 - 33.3 pg CERNER CH Comment:Testing performed by : [facility] [place] [address] MCHC 33.0 32.3 - 35.7 g/dL CERNER CH Comment:Testing performed by : [facility] [place] [address] RDW CV 12.5 11.1 - 14.9 % CERNER CH Comment:Testing performed by : [facility] [place] [address] RDW SD 43.0 35.7 - 48.1 fL CERNER CH Comment:Testing performed by : [facility] [place] [address] NRBC abs 0.00 0.00 - 0.01 K/cumm CERNER CH Comment:Testing performed by : [facility] [place] [address] ANC Prelim 2.68 1.50 - 6.50 K/cumm CERNER CH Comment: Interpretive Data The rapid ANC is a preliminary automated count and may vary from the final ANC (Neut Abs) reported in the WBC differential that follows. Current interpretive data was last revised 2025. Testing performed by: [facility] [place] [address] Blood 04/08/2025 9:12 AM CDT 04/08/2025 9:12 AM CDT Mounika Alexandre MD LAB BLOOD ORDERABLES Jo muñoz Result [facility] [address] [facility] [place] [address] * Comprehensive metabolic panel (04/08/2025 9:12 AM CDT) Sodium 136 135 - 145 mmol/L Comment:Testing performed by : [facility] [place] [address] Potassium, pl 4.5 3.3 - 4.9 mmol/L CERNER Comment:Testing performed by : [facility] [place] [address] Chloride 100 97 - 110 mmol/L [facility]:Testing performed by : [facility] [place] [address] CO2 26 22 - 32 mmol/L CERNER Comment:Testing performed by : [facility] [place] [address] Anion gap 10 2 - 15 mmol/L [facility] Comment:Testing performed by : [facility] [place] [address] BUN 17 6 - 25 mg/dL [facility] Comment:Testing performed by : [facility] [place] [address] Creatinine 0.98 0.60 - 1.10 mg/dL [facility] Comment:Testing performed by : [facility] [place] [address] Glucose 114 70 - 199 mg/dL [facility] Comment: Interpretive Data Fasting glucose >/= 126 mg/dl is diagnostic for diabetes. Fasting is defined as no caloric intake for at least 8 hours. Fasting glucose between 100 mg/dl to 125 mg/dl is diagnostic of prediabetes. In a patient with classic symptoms of hyperglycemia or hyperglycemic crisis, a random glucose >/= 200 mg/dl is diagnostic for diabetes. In the absence of unequivocal hyperglycemia, results should be confirmed by repeat testing. The classification and Diagnosis of Diabetes Diabetes Care 202; 46: S19-S40. Current interpretive data was last revised 2022. Testing performed by: [facility] [place] [address] Calcium 9.7 8.5 - 10.3 mg/dL CERNER CH Comment:Testing performed by : [facility] [place] [address] Bilirubin, total 0.4 0.1 - 1.2 mg/dL CERNER CH Comment:Testing performed by : [facility] [place] [address] Protein, pl 7.2 6.5 - 8.5 g/dL CERNER CH Comment:Testing performed by : [facility] [place] [address] Albumin 4.5 3.5 - 5.0 g/dL CERNER CH Comment:Testing performed by : [facility] [place] [address] Alk phos 57 40 - 130 Units/L CERNER CH Comment:Testing performed by : [facility] [place] [address] ALT 20 7 - 45 Units/L CERNER CH Comment:Testing performed by : [facility] [place] [address] AST 19 10 - 45 Units/L CERNER CH Comment:Testing performed by : [facility] [place] [address] Blood 04/08/2025 9:12 AM CDT 04/08/2025 9:12 AM CDT us Mounika Alexandre MD LAB BLOOD ORDERABLES Jo l Result Performing Organization Address [facility] Co de Phone Number [facility] [address] [place] [address] * MRI Abdomen W WO Contrast (03/22/2025 9:25 AM CDT) Anatomical Region Laterality Modality Body N/A Magnetic Resonan ce 03/22/2025 11:2 4 AM CDT Impressions 03/22/2025 11:24 AM CDT Redemonstrated diffuse hepatic metastasis with slow increase in size of metastatic lesions in hepatic segment IVb. Dictated by: Romel Cadena MD The radiology attending physician has personally reviewed this study, and had reviewed and/or edited this written report and agrees with it. Electronically signed by: Mauricio Stevenson M.D. 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 TECHNIQUE: Magnetic resonance imaging of the abdomen was performed prior to and following the uneventful administration of intravenous Gadolinium contrast. Protocol: Liver Contrast: Eovist 20 mL COMPARISON: Same-day CT, 12/28/2024 FINDINGS: Liver: Diffuse hepatic steatosis. - Bile ducts: No significant biliary ductal dilatation - Focal liver lesions: Again seen are multiple T2 hyperintense lesions with arterial enhancement and washout with diffusion restriction. These lesions are hypointense on hepatobiliary phase. The small business representative lesions previously mentioned are below: 1. Unchanged 1 cm lesion in segment 7 (series 27, image 80) 2. Unchanged 1.6 cm lesion in segment 7 (image 78) 3. Unchanged 2.7 cm lesion in segment 7 when remeasured in a similar fashion (image 74) 4. Unchanged 2 cm lesion in segment 7 (image 74) 5. Enlarging 3.1 cm lesion in segment IVb, previously 2.8 cm on 12/28/2024 and 2.4 cm on 09/21/2024 (image 51) 6. Enlarging 1.6 cm lesion in segment IVb, previously 1.3 cm on 12/28/2024 and 09/21/2024 (image 47) - Vasculature: The main portal vein, splenic vein, superior mesenteric vein are patent. Gallbladder: Surgically absent Pancreas: Normal Spleen: Normal Adrenals: Normal Kidneys: Cysts within the kidneys. Other Findings: Moderate-sized fat-containing ventral abdominal hernia. Postsurgical changes of bowel resection. Please see report of same day CT for findings and discussion within the chest. Procedure Note Mauricio Stevenson MD - 03/22/2025 EXAMINATION: MAGNETIC RESONANCE IMAGING OF THE ABDOMEN WITH AND WITHOUT CONTRAST HISTORY: 59-year-old female with a history of metastatic neuroendocrine tumor status post lutetium therapy. TECHNIQUE: Magnetic resonance imaging of the abdomen was performed prior to and following the uneventful administration of intravenous Gadolinium contrast. Protocol: Liver Contrast: Eovist 20 mL COMPARISON: Same-day CT, 12/28/2024 FINDINGS: Liver: Diffuse hepatic steatosis. - Bile ducts: No significant biliary ductal dilatation - Focal liver lesions: Again seen are multiple T2 hyperintense lesions with arterial enhancement and washout with diffusion restriction. These lesions are hypointense on hepatobiliary phase. The small business representative lesions previously mentioned are below: 1. Unchanged 1 cm lesion in segment 7 (series 27, image 80) 2. Unchanged 1.6 cm lesion in segment 7 (image 78) 3. Unchanged 2.7 cm lesion in segment 7 when remeasured in a similar fashion (image 74) 4. Unchanged 2 cm lesion in segment 7 (image 74) 5. Enlarging 3.1 cm lesion in segment IVb, previously 2.8 cm on 12/28/2024 and 2.4 cm on 09/21/2024 (image 51) 6. Enlarging 1.6 cm lesion in segment IVb, previously 1.3 cm on 12/28/2024 and 09/21/2024 (image 47) - Vasculature: The main portal vein, splenic vein, superior mesenteric vein are patent. Gallbladder: Surgically absent Pancreas: Normal Spleen: Normal Adrenals: Normal Kidneys: Cysts within the kidneys. Other Findings: Moderate-sized fat-containing ventral abdominal hernia. Postsurgical changes of bowel resection. Please see report of same day CT for findings and discussion within the chest. IMPRESSION: Redemonstrated diffuse hepatic metastasis with slow increase in size of metastatic lesions in hepatic segment IVb. Dictated by: Romel Cadena MD The radiology attending physician has personally reviewed this study, and had reviewed and/or edited this written report and agrees with it. Electronically signed by: Mauricio Stevenson M.D. Roberto Abebe MD IM MRI PROCEDURES Final Result * CT Chest W and Abdomen Pelvis W WO Contrast (C) (03/22/2025 8:21 AM CDT) Anatomical Region Laterality Modality Body N/A Computed Tomogra phy 03/22/2025 9:14 AM CDT Addenda Addendum by Dwayne Hinton MD PhD on 03/27/2025 1:02 PM CDT This addendum is being issued for an error in interpretation. The uterus is present. There is no evidence of hysterectomy. Dictated by: Monster Snider M.D. The radiology attending physician has personally reviewed this study, and had reviewed and/or edited this written report and agrees with it. Electronically signed by: Dwayne Hinton MD, PHD Impressions 03/22/2025 10:17 AM CDT 1. Slowly enlarging right juxtaphrenic pulmonary nodule with multiple new indeterminate pulmonary nodules. 2. Multiple hyperenhancing liver lesions, similar in distribution to December 2024 CT with one mass in hepatic segment IVb appearing slightly larger. The full extent of hepatic disease burden will be better evaluated on concurrent MRI. 3. Mild increase in size of a superior rectal lymph node with multiple mesenteric lymph nodes unchanged in size. Dictated by: Monster Snider M.D. The radiology attending physician has personally reviewed this study, and had reviewed and/or edited this written report and agrees with it. Electronically signed by: Dwayne Hinton MD, PHD Narrative 03/22/2025 10:17 AM CDT EXAMINATION: 1. Computed tomography of the chest with intravenous contrast 2. Computed tomography of the abdomen and pelvis with and without intravenous contrast HISTORY: Post 6 cycles of PRRT line for local regional therapy. TECHNIQUE: Transaxial computed tomographic images of the abdomen and pelvis were obtained without intravenous contrast, followed by images of the chest, abdomen and pelvis, after the uneventful administration of 119 mL Opti-Ray 350 intravenous contrast according to the ischemic/GI bleeding protocol. COMPARISON: 12/28/2024. FINDINGS: Chest: Unchanged appearance of the thyroid gland. No axillary, supraclavicular, mediastinal lymphadenopathy. Heart size is not changed. There is no pericardial effusion. Right atrial enlargement. Main pulmonary artery and the thoracic aorta are normal in caliber. Three-vessel branching pattern of the aortic arch. 3 mm right middle lobe pulmonary is new from December 2024 (series 7, image 62). New left upper lobe nodule measuring 4 mm (series 7 image 69). 9 mm right juxtaphrenic nodule, (series 7, image 102) serially enlarging from 2022. Left lower lobe pulmonary nodule (series 7, image 85) is grossly stable. There is no pneumothorax, pneumonia or pulmonary edema. Unchanged peripheral reticulations throughout the lungs. There is no enlarging pleural effusion. Abdomen/Pelvis: Multiple arterially hyperenhancing liver lesions, mildly increased in in size (but not distribution) from December 2024. An index lesion is a hepatic segment IVb mass measuring 2.8 cm (series 6, image 168, previously measuring 2.3 cm when measured in a similar contrast phase. Patent portal vein. Cholecystectomy. No worsening intrahepatic biliary ductal dilatation. Spleen, adrenal glands are normal. There is no abdominal aortic aneurysm. Celiac artery, superior mesenteric artery, bilateral renal arteries, inferior mesenteric artery and proximal common iliac arteries are patent. No aneurysm. Replaced left hepatic artery arising from the left gastric artery. Multiple unchanged ileocolonic rounded nodes (series 6 image 228). The kidneys enhance symmetrically. Multiple simple cysts and other hypoattenuating lesions too small to characterize throughout both kidneys. On delayed phase imaging at 4 minutes, there is no persistent filling defect within the partially imaged collecting system. There is no hydronephrosis. Bladder normal. Hysterectomy. No new or suspicious adnexal lesions. Partial bowel resection. There is no bowel obstruction. Colonic diverticulosis without diverticulitis. Multiple subcutaneous soft tissue flank nodules are unchanged, likely injection granulomas. Soft tissue nodule measuring 3 mm in the left upper quadrant is unchanged from 04/26/2023. Partially calcified 6 mm superior rectal soft tissue density/node is new from 2022. It is minimally increased in size from December 2024. Fat-containing ventral hernia. No new osseous lesions. Procedure Note Dwayne Hinton MD PhD - 03/22/2025 EXAMINATION: 1. Computed tomography of the chest with intravenous contrast 2. Computed tomography of the abdomen and pelvis with and without intravenous contrast HISTORY: Post 6 cycles of PRRT line for local regional therapy. TECHNIQUE: Transaxial computed tomographic images of the abdomen and pelvis were obtained without intravenous contrast, followed by images of the chest, abdomen and pelvis, after the uneventful administration of 119 mL Opti-Ray 350 intravenous contrast according to the ischemic/GI bleeding protocol. COMPARISON: 12/28/2024. FINDINGS: Chest: Unchanged appearance of the thyroid gland. No axillary, supraclavicular, mediastinal lymphadenopathy. Heart size is not changed. There is no pericardial effusion. Right atrial enlargement. Main pulmonary artery and the thoracic aorta are normal in caliber. Three-vessel branching pattern of the aortic arch. 3 mm right middle lobe pulmonary is new from December 2024 (series 7, image 62). New left upper lobe nodule measuring 4 mm (series 7 image 69). 9 mm right juxtaphrenic nodule, (series 7, image 102) serially enlarging from 2022. Left lower lobe pulmonary nodule (series 7, image 85) is grossly stable. There is no pneumothorax, pneumonia or pulmonary edema. Unchanged peripheral reticulations throughout the lungs. There is no enlarging pleural effusion. Abdomen/Pelvis: Multiple arterially hyperenhancing liver lesions, mildly increased in in size (but not distribution) from December 2024. An index lesion is a hepatic segment IVb mass measuring 2.8 cm (series 6, image 168, previously measuring 2.3 cm when measured in a similar contrast phase. Patent portal vein. Cholecystectomy. No worsening intrahepatic biliary ductal dilatation. Spleen, adrenal glands are normal. There is no abdominal aortic aneurysm. Celiac artery, superior mesenteric artery, bilateral renal arteries, inferior mesenteric artery and proximal common iliac arteries are patent. No aneurysm. Replaced left hepatic artery arising from the left gastric artery. Multiple unchanged ileocolonic rounded nodes (series 6 image 228). The kidneys enhance symmetrically. Multiple simple cysts and other hypoattenuating lesions too small to characterize throughout both kidneys. On delayed phase imaging at 4 minutes, there is no persistent filling defect within the partially imaged collecting system. There is no hydronephrosis. Bladder normal. Hysterectomy. No new or suspicious adnexal lesions. Partial bowel resection. There is no bowel obstruction. Colonic diverticulosis without diverticulitis. Multiple subcutaneous soft tissue flank nodules are unchanged, likely injection granulomas. Soft tissue nodule measuring 3 mm in the left upper quadrant is unchanged from 04/26/2023. Partially calcified 6 mm superior rectal soft tissue density/node is new from 2022. It is minimally increased in size from December 2024. Fat-containing ventral hernia. No new osseous lesions. IMPRESSION: 1. Slowly enlarging right juxtaphrenic pulmonary nodule with multiple new indeterminate pulmonary nodules. 2. Multiple hyperenhancing liver lesions, similar in distribution to December 2024 CT with one mass in hepatic segment IVb appearing slightly larger. The full extent of hepatic disease burden will be better evaluated on concurrent MRI. 3. Mild increase in size of a superior rectal lymph node with multiple mesenteric lymph nodes unchanged in size. Dictated by: Monster Snider M.D. The radiology attending physician has personally reviewed this study, and had reviewed and/or edited this written report and agrees with it. Electronically signed by: Dwayne Hinton MD, PHD Roberto Abebe MD IMG CT PROCEDURES Edited Result - Final from Last 3 Months Insurance [facility] [facility] Advance Directives For more information, please contact: [phone] * Full Code (Latest Code Status on File) Date Activated Date Inactivated Comments 01/05/2022 7:39 AM 01/05/2022 5:23 PM * Full Code Date Activated Date Inactivated Comments 12/16/2021 10:07 AM 12/16/2021 8:22 PM * Full Code Date Activated Date Inactivated Comments 12/16/2021 10:05 AM 12/16/2021 10:07 AM * Full Code Date Activated Date Inactivated Comments 12/16/2021 10:05 AM 12/16/2021 10:05 AM * Full Code Date Activated Date Inactivated Comments 09/29/2020 10:38 AM 09/29/2020 6:16 PM Care Teams Welt Treater Relationship Specialty Start Date End Date Joe Vincent MD [address] [facility] [address] [place] [address] PCP - General Family Practice 02/23/21 Gómez Gustafson MD Referring Physician Colon and Rectal Surgery 06/20/18 Javier Meade MD Referring Physician Gastroenterology 03/09/19 Mounika Alexandre MD [address] [facility] [address] [place] [address] Consulting Physician Medical Oncology 12/11/20
--- OUTSIDE RECORDS SUMMARY | 2025-06-05 15:53 | XMS_ITS | Encounter Summary ---
Author Organization [facility] Address [address] [place] [address] Care Team Providers Care Casing Runner Name Role Phone Kelli Munoz MD Primary Care Provider [phone]- [phone] Encounter Details Date Type Department Care Team (Latest Contact Info) Description 02/17/2007 Outpatient Historical [facility] Lasha Maguire MD [address] [facility] [address] [place] [address] Other Screening Mammogram (Primary Dx) Social History Tobacco Use Types Packs/Day Years Used Date Smoking Tobacco: Never Assessed Comments Unknown Sex and Gender Information Value Date Recorded Sex Assigned at Not on file Legal Sex Female 5:19 AM [employer] Gender Identity Not on file Sexual Orientation Not on file documented as of this encounter Plan of Treatment Not on file documented as of this encounter Visit Diagnoses Diagnosis Other screening mammogram- Primary documented in this encounter Care Teams Casing Runner Relationship Specialty Start Date End Date Kelli Munoz MD [address] [id number] PCP - General 10/24/15 documented as of this encounter
--- OUTSIDE RECORDS SUMMARY | 2025-06-05 15:53 | XMS_ITS | Referral Summary ---
Author Organization [facility] [address] [facility] [address] Address [address] [place] [phone] Care Team Providers Care Radar Systems Engineer Name Role Phone Gómez Gustafson MD Unavailable Javier Meade MD Unavailable [phone] Mounika Alexandre MD Unavailable Joe Vincent MD Primary Care Provider Encounters Date Type Department Care Team Description 06/03/2025 11:30 AM CDT Lab [facility] Lab [address] [place] [id number] Neuroendocrine cancer (HCC) 06/03/2025 12:00 PM CDT Infusion [facility] at [address] [phone] Neuroendocrine cancer (HCC) (Primary Dx) 05/20/2025 Orders Only [facility] [address] [facility] Floor 5 [place] [address] Mounika Alexandre MD 05/08/2025 Results Follow-Up [facility] [address] [facility] [address], [place] [address] Kiarra Nogueira NP Lipid panel 05/07/2025 Orders Only [facility] Oncology [address] [place] [phone] Zachary Hernandez 05/07/2025 Orders Only [facility] [address] [place] [address] Mounika Alexandre MD Neuroendocrine cancer (HCC) (Primary Dx) 05/06/2025 12:00 PM CDT Infusion [facility] [address] [place] [address] Neuroendocrine cancer (HCC) (Primary Dx) 05/06/2025 11:30 AM CDT Lab [facility] Lab [address] [place] [phone] Neuroendocrine cancer (HCC) 05/03/2025 9:15 AM CDT Office Visit [facility] Cardiology [address] [place] [address] Gómez Brito MD Essential hypertension (Primary Dx); Mixed hyperlipidemia; Palpitations; Class 2 severe obesity due to excess calories with serious comorbidity and body mass index (BMI) of 37.0 to 37.9 in adult (HCC); Malignant carcinoid tumor of ileum (HCC); Postoperative hypothyroidism 04/17/2025 Orders Only [facility] [address] [facility] Floor 1, [address] [place] [address] Mounika Alexandre MD 04/08/2025 Orders Only [facility] [address] [place] [address] Zachary Hernandez 04/08/2025 10:15 AM CDT Infusion [facility] [address] [place] [address] Neuroendocrine cancer (HCC) (Primary Dx) 04/08/2025 9:15 AM CDT Lab [facility] Lab [address] [place] [phone] Neuroendocrine cancer (HCC) 04/08/2025 9:45 AM CDT Office Visit [facility] [address] [place] [address] Mounika Alexandre MD Neuroendocrine cancer (HCC) (Primary Dx) 03/22/2025 7:09 AM CDT - 03/22/2025 11:59 PM CDT Hospital Encounter [facility] [address] [place] [address] 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) Discharge Disposition: Discharge to home or self care 03/22/2025 7:08 AM CDT - 03/22/2025 11:59 PM CDT Hospital Encounter [facility] [address] [place] [address] 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) Discharge Disposition: Discharge to home or self care 03/13/2025 Orders Only [facility] [address] [facility] Floor 5 [place] [address] Zachary Hernandez from Last 3 Months Allergies Active Allergy Reactions Criticality Noted Date [...] Diagnosed Date Resolved Date Dyslipidemia 04/28/2021 05/02/2023 Immunizations Immunization Administration Dates Next Due Influenza, Quadrivalent, Jacquelin l Culture-based MDCK, Preservative Free, Antibiotic Free, Intramuscular 08/17/2023,08/30/2020 Influenza, Quadrivalent, Split, Intramuscular Influenza, Quadrivalent, Spl it, Preservative Free, Intramuscular 09/04/2019 Influenza, Trivalent, Cell C ulture-based MDCK, Preservative Free, Antibiotic Free, Intramuscular 08/30/2020 Moderna SARS-CoV-2 Monovalent Vaccination (12+ Y RS) 01/17/2021,12/27/2020 Social History Tobacco Use Types Packs/Day Years [...] on file Legal Sex Female 11:24 PM NURSE COORDINATOR Gender Identity Female 11/10/2020 11:18 AM NURSE COORDINATOR Sexual Orientation Not on file Last Filed Vital Signs [...] 05/03/2025 9:12 AM CDT Plan of Treatment Not on file Medical Devices Implanted Type Area Furnace Keeper Device Identifier Shelf Expiration Date Model / Serial / Lot [facility] Gabriel [id number] Device Closure Angio-Seal Vip Bondek-Plus Polyglyd L70 Cm Od6 Fr Odsec.035 In Vascular - [id number] Implanted:Qty: 1 on 12/16/2021 at [facility] QBuy 07/07/2022 [id number] / / [id number] [facility] Collect.it Systems S220 Embosphere Prefill Saline Syringe Compressible Nonaggregate - [id number] Implanted:Qty: 1 on 01/05/2022 at [facility] GreenWave Reality 07/13/2024 [id number] / / [id number] Angio-Seal Vip 6fr Closure Device-[id number] Implanted:Qty: 1 on 01/05/2022 at [facility] [employer] QBuy 10/06/2022 [id number] / / [id number] Procedures Procedure Name Priority Date/Time Associated Diagnosis [...] was last reviewed 2021. Testing performed by: [facility] [place] [address] Blood 06/03/2025 11:3 0 AM CDT 06/03/2025 11:30 AM CDT Mounika Alexandre MD LAB BLOOD ORDERABLES Jo muñoz Result [facility] [address] [address] [place] [address] * Differential, auto (06/03/2025 11:30 AM CDT) Neutrophil abs 3.18 1.50 - 6.50 K/cumm Comment:Testing performed by : [facility] [place] [address] Imm gran abs 0.02 0.00 - 0.10 K/cumm [facility] Comment:Testing performed by : [facility] [place] [address] Lymphocyte abs 1.76 0.80 - 3.30 K/cumm JG Comment:Testing performed by : [facility] [place] [address] Monocyte abs 0.49 0.20 - 0.80 K/cumm CERYENNY Comment:Testing performed by : [facility] [place] [address] Eosinophil abs 0.15 0.00 - 0.50 K/cumm CERYENNY Comment:Testing performed by : [facility] [place] [address] Basophil abs 0.08 0.00 - 0.10 K/cumm CERYENNY Comment:Testing performed by : [facility] [place] [address] Neutrophil pct 56.0 % [facility] Comment: Interpretive Data Percent cell count reference ranges are not reported, since discordance with absolute values may lead to misinterpretation of CBC data. Current Interpretive Data was last revised on 2018. Testing performed by: [facility] [place] [address] Imm gran pct 0.4 % CERNER Comment: Interpretive Data Percent cell count reference ranges are not reported, since discordance with absolute values may lead to misinterpretation of CBC data. Current Interpretive Data was last revised on 2018. Testing performed by: [facility] [place] [address] Lymphocyte pct 31.0 % [facility] Comment: Interpretive Data Percent cell count reference ranges are not reported, since discordance with absolute values may lead to misinterpretation of CBC data. Current Interpretive Data was last revised on 2018. Testing performed by: [facility] [place] [address] Monocyte pct 8.6 % CERNER Comment: Interpretive Data Percent cell count reference ranges are not reported, since discordance with absolute values may lead to misinterpretation of CBC data. Current Interpretive Data was last revised on 2018. Testing performed by: [facility] [place] [address] Eosinophil pct 2.6 % [facility] Comment: Interpretive Data Percent cell count reference ranges are not reported, since discordance with absolute values may lead to misinterpretation of CBC data. Current Interpretive Data was last revised on 2018. Testing performed by: [facility] [place] [address] Basophil pct 1.4 % CERNER Comment: Interpretive Data Percent cell count reference ranges are not reported, since discordance with absolute values may lead to misinterpretation of CBC data. Current Interpretive Data was last revised on 2018. Testing performed by: [facility] [place] [address] Blood 06/03/2025 11:3 0 AM CDT 06/03/2025 11:30 AM CDT us Mounika Alexandre MD LAB BLOOD ORDERAB[place] [id number] [address] [place] [address] * CBC with auto differential (06/03/2025 11:30 AM CDT) WBC 5.68 3.80 - 9.90 K/cumm Comment:Testing performed by : [facility] [place] [address] Hgb 12.7 11.9 - 15.5 g/dL CERNER CH Comment:Testing performed by : [facility] [place] [address] Hct 38.2 35.6 - 45.5 % CERNER CH Comment:Testing performed by : [facility] [place] [address] Plt 204 150 - 400 K/cumm CERNER CH Comment:Testing performed by : [facility] [place] [address] MPV 9.7 9.1 - 12.3 fL CERNER CH Comment:Testing performed by : [facility] [place] [address] RBC 4.07 3.90 - 5.20 M/cumm CERNER CH Comment:Testing performed by : [facility] [place] [address] MCV 93.9 81.3 - 96.4 fL CERNER CH Comment:Testing performed by : [facility] [place] [address] MCH 31.2 27.1 - 33.3 pg CERNER CH Comment:Testing performed by : [facility] [place] [address] MCHC 33.2 32.3 - 35.7 g/dL CERNER CH Comment:Testing performed by : [facility] [place] [address] RDW CV 12.4 11.1 - 14.9 % CERNER CH Comment:Testing performed by : [facility] [place] [address] RDW SD 42.8 35.7 - 48.1 fL CERNER CH Comment:Testing performed by : [facility] [place] [address] NRBC abs 0.00 0.00 - 0.01 K/cumm CERNER CH Comment:Testing performed by : [facility] [place] [address] ANC Prelim 3.18 1.50 - 6.50 K/cumm CERNER CH Comment: Interpretive Data The rapid ANC is a preliminary automated count and may vary from the final ANC (Neut Abs) reported in the WBC differential that follows. Current interpretive data was last revised 2025. Testing performed by: [facility] [place] [address] Morphologic Screen Results confirmed by manual morphology review. JG GLEASON Comment:Testing performed by : [facility] [place] [address] Blood 06/03/2025 11:3 0 AM CDT 06/03/2025 11:30 AM CDT us Mounika Alexandre MD LAB BLOOD ORDERABLES Edit ed Result - Final JG GLEASON [address] [address] Department of Laboratories [place] [id number] * Comprehensive metabolic panel (06/03/2025 11:30 AM CDT) Sodium 138 135 - 145 mmol/L Comment:Testing performed by : [facility] [place] [address] Potassium, pl 4.3 3.3 - 4.9 mmol/L JG Comment:Testing performed by : [facility] [place] [address] Chloride 102 97 - 110 mmol/L JG Comment:Testing performed by : [facility] [place] [address] CO2 22 22 - 32 mmol/L JG Comment:Testing performed by : [facility] [place] [address] Anion gap 14 2 - 15 mmol/L JG Comment:Testing performed by : [facility] [place] [address] BUN 16 6 - 25 mg/dL JG Comment:Testing performed by : [facility] [place] [address] Creatinine 0.95 0.60 - 1.10 mg/dL JG Comment:Testing performed by : [facility] [place] [address] Glucose 115 70 - 199 mg/dL CERNER [...] was last revised 2022. Testing performed by: [facility] [place] [address] Calcium 9.2 8.5 - 10.3 mg/dL CERNER CH Comment: Corrected results due to instrument issue. Notified Nicci Jameson. 06/03/2025 15:10:36 CDT. Frida Cyr Testing performed by: [facility] [place] [address] Bilirubin, total 0.5 0.1 - 1.2 mg/dL CERNER CH Comment:Testing performed by : [facility] [place] [address] Protein, pl 7.1 6.5 - 8.5 g/dL CERNER CH Comment:Testing performed by : [facility] [place] [address] Albumin 4.4 3.5 - 5.0 g/dL CERNER CH Comment:Testing performed by : [facility] [place] [address] Alk phos 59 40 - 130 Units/L CERNER CH Comment:Testing performed by : [facility] [place] [address] ALT 21 7 - 45 Units/L CERNER CH Comment:Testing performed by : [facility] [place] [address] AST 25 10 - 45 Units/L CERNER CH Comment:Testing performed by : [facility] [place] [address] Blood 06/03/2025 11:3 0 AM CDT 06/03/2025 11:30 AM CDT Mounika Alexandre MD LAB BLOOD ORDERABLES Edit ed Result - Final Performing Organization Address City/[facility]/ZIP Co de Phone Number JG GLEASON [id number] [address] Department [place] [address] * eGFR (05/06/2025 11:27 AM CDT) eGFR [...] was last reviewed 2021. Testing performed by: [facility] [place] [address] Blood 05/06/2025 11:2 7 AM CDT 05/06/2025 11:27 AM CDT Mounika Alexandre MD LAB BLOOD ORDERABLES Jo l Result MELISSAYENNY GLEASON [address] [address] Department [place] [address] * Differential, auto (05/06/2025 11:27 AM CDT) Neutrophil abs 2.90 1.50 - 6.50 K/cumm Comment:Testing performed by : [facility] [place] [address] Imm gran abs 0.02 0.00 - 0.10 K/cumm CERNER CH Comment:Testing performed by : [facility] [place] [address] Lymphocyte abs 1.51 0.80 - 3.30 K/cumm CERNER CH Comment:Testing performed by : [facility] [place] [address] Monocyte abs 0.38 0.20 - 0.80 K/cumm CERNER CH Comment:Testing performed by : [facility] [place] [address] Eosinophil abs 0.22 0.00 - 0.50 K/cumm CERNER CH Comment:Testing performed by : [facility] [place] [address] Basophil abs 0.09 0.00 - 0.10 K/cumm CERNER CH Comment:Testing performed by : [facility] [place] [address] Neutrophil pct 56.6 % CERNER CH Comment: Interpretive Data Percent cell count reference ranges are not reported, since discordance with absolute values may lead to misinterpretation of CBC data. Current Interpretive Data was last revised on 2018. Testing performed by: [facility] [place] [address] Imm gran pct 0.4 % CERNER Comment: Interpretive Data Percent cell count reference ranges are not reported, since discordance with absolute values may lead to misinterpretation of CBC data. Current Interpretive Data was last revised on 2018. Testing performed by: [facility] [place] [address] Lymphocyte pct 29.5 % CERNER Comment: Interpretive Data Percent cell count reference ranges are not reported, since discordance with absolute values may lead to misinterpretation of CBC data. Current Interpretive Data was last revised on 2018. Testing performed by: [facility] [place] [address] Monocyte pct 7.4 % CERNER CH Comment: Interpretive Data Percent cell count reference ranges are not reported, since discordance with absolute values may lead to misinterpretation of CBC data. Current Interpretive Data was last revised on 2018. Testing performed by: [facility] [place] [address] Eosinophil pct 4.3 % CERNER CH Comment: Interpretive Data Percent cell count reference ranges are not reported, since discordance with absolute values may lead to misinterpretation of CBC data. Current Interpretive Data was last revised on 2018. Testing performed by: [facility] [place] [address] Basophil pct 1.8 % JG Comment: Interpretive Data Percent cell count reference ranges are not reported, since discordance with absolute values may lead to misinterpretation of CBC data. Current Interpretive Data was last revised on 2018. Testing performed by: [facility] [place] [address] Blood 05/06/2025 11:2 7 AM CDT 05/06/2025 11:27 AM CDT Mounika Alexandre MD LAB BLOOD [place] [id number] [address] [place] [address] * CBC with auto differential (05/06/2025 11:27 AM CDT) WBC 5.12 3.80 - 9.90 K/cumm Comment:Testing performed by : [facility] [place] [address] Hgb 12.7 11.9 - 15.5 g/dL JG CH Comment:Testing performed by : [facility] [place] [address] Hct 37.7 35.6 - 45.5 % JG CH Comment:Testing performed by : [facility] [place] [address] Plt 231 150 - 400 K/cumm JG CH Comment:Testing performed by : [facility] [place] [address] MPV 9.5 9.1 - 12.3 fL JG CH Comment:Testing performed by : [facility] [place] [address] RBC 4.07 3.90 - 5.20 M/cumm JG CH Comment:Testing performed by : [facility] [place] [address] MCV 92.6 81.3 - 96.4 fL JG CH Comment:Testing performed by : [facility] [place] [address] MCH 31.2 27.1 - 33.3 pg JG CH Comment:Testing performed by : [facility] [place] [address] MCHC 33.7 32.3 - 35.7 g/dL JG CH Comment:Testing performed by : [facility] [place] [address] RDW CV 12.4 11.1 - 14.9 % JG CH Comment:Testing performed by : [facility] [place] [address] RDW SD 41.9 35.7 - 48.1 fL JG CH Comment:Testing performed by : [facility] [place] [address] NRBC abs 0.00 0.00 - 0.01 K/cumm JG CH Comment:Testing performed by : [facility] [place] [address] ANC Prelim 2.90 1.50 - 6.50 K/cumm JG GLEASON Comment: Interpretive Data The rapid ANC is a preliminary automated count and may vary from the final ANC (Neut Abs) reported in the WBC differential that follows. Current interpretive data was last revised 2025. Testing performed by: [facility] [place] [address] Blood 05/06/2025 11:2 7 AM CDT 05/06/2025 11:27 AM CDT us Mounika Alexandre MD LAB BLOOD ORDERABLES Jo l Result JG GLEASON [address] [address] Vu [place] [address] * Comprehensive metabolic panel (05/06/2025 11:27 AM CDT) Sodium 136 135 - 145 mmol/L Comment:Testing performed by : [facility] [place] [address] Potassium, pl 4.5 3.3 - 4.9 mmol/L CERNER CH Comment:Testing performed by : [facility] [place] [address] Chloride 99 97 - 110 mmol/L CERNER CH Comment:Testing performed by : [facility] [place] [address] CO2 24 22 - 32 mmol/L CERNER CH Comment:Testing performed by : [facility] [place] [address] Anion gap 13 2 - 15 mmol/L CERNER CH Comment:Testing performed by : [facility] [place] [address] BUN 15 6 - 25 mg/dL CERNER CH Comment:Testing performed by : [facility] [place] [address] Creatinine 0.93 0.60 - 1.10 mg/dL CERNER CH Comment:Testing performed by : [facility] [place] [address] Glucose 103 70 - 199 mg/dL CERNER CH Comment: [...] was last revised 2022. Testing performed by: [facility] [place] [address] Calcium 9.2 8.5 - 10.3 mg/dL CERNER CH Comment:Testing performed by : [facility] [place] [address] Bilirubin, total 0.4 0.1 - 1.2 mg/dL CERNER CH Comment:Testing performed by : [facility] [place] [address] Protein, pl 7.1 6.5 - 8.5 g/dL CERNER CH Comment:Testing performed by : [facility] [place] [address] Albumin 4.4 3.5 - 5.0 g/dL CERNER CH Comment:Testing performed by : [facility], [place] [address] Alk phos 72 40 - 130 Units/L JG GLEASON Comment:Testing performed by : [facility] [place] [address] ALT 25 7 - 45 Units/L JG GLEASON Comment:Testing performed by : [facility] [place] [address] AST 22 10 - 45 Units/L JG Comment:Testing performed by : [facility] [place] [address] Blood 05/06/2025 11:2 7 AM CDT 05/06/2025 11:27 AM CDT Mounika Alexandre MD LAB BLOOD ORDERABLES Jo l Result [facility] [address] [address] [place] [address] * Lipid panel (05/03/2025 9:43 AM CDT) [...] factors. LDL-C is now calculated using the Lamberto-Geetha calculation, which is a validated novel method providing better accuracy than the Friedewald equation in the estimation of LDL-C. Lamberto SS et al. HEATHER. 2013;310(19): 1162-4698 (http://education.Natrix Separations.TuneStars/faq/EZB990) Chol/HDL ratio 2.8 <5.0 (calc) [facility] Non-HDL, (LDL+VLDL) 108 <130 mg/dL (calc) [facility] Comment: For patients with diabetes plus 1 major ASCVD risk factor, treating to a non-HDL-C goal of <100 mg/dL (LDL-C of <70 mg/dL) is considered a therapeutic option. Blood 05/03/2025 9:4 3 AM CDT 05/03/2025 9:43 AM CDT Gómez Brito MD LAB BLOOD ORDERABLES Jo l Result [employer] [address] [address] [place] [phone] * eGFR (04/08/2025 9:12 AM CDT) eGFR [...] was last reviewed 2021. Testing performed by: [facility], [place] [address] Blood 04/08/2025 9:12 AM CDT 04/08/2025 9:12 AM CDT us Mounika Alexandre MD LAB BLOOD ORDERABLES Jo l Result JG GLEASON [address] [address] [place] [address] * Differential, auto (04/08/2025 9:12 AM CDT) Neutrophil abs 2.68 1.50 - 6.50 K/cumm Comment:Testing performed by : [facility] [place] [address] Imm gran abs 0.04 0.00 - 0.10 K/cumm CERNER CH Comment:Testing performed by : [facility] [place] [address] Lymphocyte abs 1.35 0.80 - 3.30 K/cumm CERNER CH Comment:Testing performed by : [facility] [place] [address] Monocyte abs 0.36 0.20 - 0.80 K/cumm CERNER CH Comment:Testing performed by : [facility] [place] [address] Eosinophil abs 0.27 0.00 - 0.50 K/cumm CERNER CH Comment:Testing performed by : [facility] [place] [address] Basophil abs 0.07 0.00 - 0.10 K/cumm CERNER CH Comment:Testing performed by : [facility] [place] [address] Neutrophil pct 56.2 % CERNER CH Comment: Interpretive Data Percent cell count reference ranges are not reported, since discordance with absolute values may lead to misinterpretation of CBC data. Current Interpretive Data was last revised on 2018. Testing performed by: [facility] [place] [address] Imm gran pct 0.8 % CERNER CH Comment: Interpretive Data Percent cell count reference ranges are not reported, since discordance with absolute values may lead to misinterpretation of CBC data. Current Interpretive Data was last revised on 2018. Testing performed by: [facility] [place] [address] Lymphocyte pct 28.3 % CERNER CH Comment: Interpretive Data Percent cell count reference ranges are not reported, since discordance with absolute values may lead to misinterpretation of CBC data. Current Interpretive Data was last revised on 2018. Testing performed by: [facility] [place] [address] Monocyte pct 7.5 % CERNER CH Comment: Interpretive Data Percent cell count reference ranges are not reported, since discordance with absolute values may lead to misinterpretation of CBC data. Current Interpretive Data was last revised on 2018. Testing performed by: [facility] [place] [address] Eosinophil pct 5.7 % JG GLEASON Comment: Interpretive Data Percent cell count reference ranges are not reported, since discordance with absolute values may lead to misinterpretation of CBC data. Current Interpretive Data was last revised on 2018. Testing performed by: [facility] [place] [address] Basophil pct 1.5 % JG GLEASON Comment: Interpretive Data Percent cell count reference ranges are not reported, since discordance with absolute values may lead to misinterpretation of CBC data. Current Interpretive Data was last revised on 2018. Testing performed by: [facility] [place] [address] Blood 04/08/2025 9:12 AM CDT 04/08/2025 9:12 AM CDT Mounika Alexandre MD LAB BLOOD ORDERAB[place] [id number] [address] Vu [place] [address] * CBC with auto differential (04/08/2025 9:12 AM CDT) WBC 4.77 3.80 - 9.90 K/cumm Comment:Testing performed by : [facility] [place] [address] Hgb 12.4 11.9 - 15.5 g/dL JG GLEASON Comment:Testing performed by : [facility] [place] [address] Hct 37.6 35.6 - 45.5 % JG GLEASON Comment:Testing performed by : [facility] [place] [address] Plt 191 150 - 400 K/cumm JG GLEASON Comment:Testing performed by : [facility] Laboratory at [facility], [place] [address] MPV 9.7 9.1 - 12.3 fL CERNER CH Comment:Testing performed by : [facility] [place] [address] RBC 4.01 3.90 - 5.20 M/cumm CERNER CH Comment:Testing performed by : [facility] [place] [address] MCV 93.8 81.3 - 96.4 fL CERYENNY CH Comment:Testing performed by : [facility] [place] [address] MCH 30.9 27.1 - 33.3 pg CERNER CH Comment:Testing performed by : [facility] [place] [address] MCHC 33.0 32.3 - 35.7 g/dL CERYENNY CH Comment:Testing performed by : [facility] [place] [address] RDW CV 12.5 11.1 - 14.9 % JG Comment:Testing performed by : [facility] [place] [address] RDW SD 43.0 35.7 - 48.1 fL CERNER CH Comment:Testing performed by : [facility] [place] [address] NRBC abs 0.00 0.00 - 0.01 K/cumm JG Comment:Testing performed by : [facility] [place] [address] ANC Prelim 2.68 1.50 - 6.50 K/cumm JG Comment: Interpretive Data The rapid ANC is a preliminary automated count and may vary from the final ANC (Neut Abs) reported in the WBC differential that follows. Current interpretive data was last revised 2025. Testing performed by: [facility] [place] [address] Blood 04/08/2025 9:12 AM CDT 04/08/2025 9:12 AM CDT us Mounika Alexander MD LAB BLOOD ORDERABLES Jo muñoz Result [facility] [address] [place] [address] * Comprehensive metabolic panel (04/08/2025 9:12 AM CDT) Sodium 136 135 - 145 mmol/L Comment:Testing performed by : [facility] [place] [address] Potassium, pl 4.5 3.3 - 4.9 mmol/L CERNER CH Comment:Testing performed by : [facility] [place] [address] Chloride 100 97 - 110 mmol/L CERNER CH Comment:Testing performed by : [facility] [place] [address] CO2 26 22 - 32 mmol/L CERNER CH Comment:Testing performed by : [facility] [place] [address] Anion gap 10 2 - 15 mmol/L CERNER CH Comment:Testing performed by : [facility] [place] [address] BUN 17 6 - 25 mg/dL CERNER CH Comment:Testing performed by : [facility] [place] [address] Creatinine 0.98 0.60 - 1.10 mg/dL CERNER CH Comment:Testing performed by : [facility] [place] [address] Glucose 114 70 - 199 mg/dL CERNER CH Comment: [...] classification and Diagnosis of Diabetes Diabetes Care 2021; 46: S19-S40. Current interpretive data was last revised 2022. Testing performed by: [facility] [place] [address] Calcium 9.7 8.5 - 10.3 mg/dL CERNER CH Comment:Testing performed by : [facility] [place] [address] Bilirubin, total 0.4 0.1 - 1.2 mg/dL CERNER CH Comment:Testing performed by : [facility] [place] [address] Protein, pl 7.2 6.5 - 8.5 g/dL CERNER CH Comment:Testing performed by : [facility] [place] [address] Albumin 4.5 3.5 - 5.0 g/dL CERNER CH Comment:Testing performed by : [facility] [place] [address] Alk phos 57 40 - 130 Units/L CERNER CH Comment:Testing performed by : [facility] [place] [address] ALT 20 7 - 45 Units/L CERNER CH Comment:Testing performed by : [facility] [place] [address] AST 19 10 - 45 Units/L CERNER CH Comment:Testing performed by : [facility] [place] [address] Blood 04/08/2025 9:12 AM CDT 04/08/2025 9:12 AM CDT Mounika Alexandre MD LAB BLOOD ORDERABLES Jo muñoz Result [facility]NOTE 3[facility] [address] [place] [address] * MRI Abdomen W WO Contrast (03/22/2025 [...] lesions are hypointense on hepatobiliary phase. The merchandiser retail representative lesions previously mentioned are below: 1. [...] lesions are hypointense on hepatobiliary phase. The merchandiser retail representative lesions previously mentioned are below: 1. [...] by: Mauricio Stevenson M.D. Roberto Abebe MD IMG MRI PROCEDURES Final Result * CT Chest [...] - Final from Last 3 Months Insurance [facility] GENERIC COPAY ASSIST Advance Directives For more information, please contact: [phone] * Full Code (Latest Code Status on [...] 10:38 AM 09/29/2020 6:16 PM Care Teams Radar Systems Engineer Relationship Specialty Start Date End Date Joe Vincent MD [address] [facility] [address] [place] [address] PCP - General Family Practice 02/23/21 Gómez Gustafson MD Referring Physician Colon and Rectal Surgery 06/20/18 Javier Meade MD Referring Physician Gastroenterology 03/09/19 Mounika Alexandre MD [address] [facility] [address] [place] [address] Consulting Physician Medical Oncology 12/11/20
--- OUTSIDE RECORDS SUMMARY | 2025-06-05 15:53 | XMS_ITS | Encounter Summary ---
Author Organization [facility] Address [address] [place] [address] Care Team Providers Care Pick Up And Delivery Driver Name Role Phone Kelli Munoz MD Primary Care Provider +1- [phone] Encounter Details Date Type Department Care Team (Latest Contact Info) Description 02/08/2005 Outpatient Historical HIS [facility] Lasha Maguire MD [address] [facility] [address] [place] [address] SCREENING MAMM-MAILG NEOPL-OTHER (Primary Dx) Social History Tobacco Use Types Packs/Day Years Used Date Smoking Tobacco: Never Assessed Comments Unknown Sex and Gender Information Value Date Recorded Sex Assigned at Not on file Legal Sex Female 5:19 AM SLAG PRODUCTION WORKER Gender Identity Not on file Sexual Orientation Not on file documented as of this encounter Plan of Treatment Not on file documented as of this encounter Visit Diagnoses Diagnosis Other screening mammogram- Primary documented in this encounter Care Teams Pick Up And Delivery Driver Relationship Specialty Start Date End Date Kelli Munoz MD [address] [facility] [address] [place] [address] PCP - General 10/24/15 documented as of this encounter
--- OUTSIDE RECORDS SUMMARY | 2025-06-05 15:53 | XMS_ITS | Encounter Summary ---
Author Organization [facility] Address [address] [place] [address] Attn: [place] [address] Care Team Providers Care Oil Separator Name Role Phone Kelli Munoz MD Primary Care Provider +1- [phone] Encounter Details Date Type Department Care Team (Late st Contact Info) Description 08/05/1993 Outpatient Historical [facility], [place] [id number] [place] [address] Social History Tobacco Use Types Packs/Day Years Used Date Smoking Tobacco: Never Assessed Comments Unknown Sex and Gender Information Value Date Recorded Sex Assigned at Not on file Legal Sex Female 5:19 AM ROSE GROWER Gender Identity Not on file Sexual Orientation Not on file documented as of this encounter Plan of Treatment Not on file documented as of this encounter Visit Diagnoses Not on filedocumented in this encounter Care Teams Oil Separator Relationship Specialty Start Date End Date Kelli Munoz MD [address] [phone] PCP - General 10/24/15 documented as of this encounter
--- OUTSIDE RECORDS SUMMARY | 2025-06-05 15:53 | XMS_ITS | Encounter Summary ---
Author Organization [facility] Address [address] [place] [address] Care Team Providers Care Architecture Drafter Name Role Phone Kelli Munoz MD Primary Care Provider +1- [phone] Encounter Details Date Type Department Care Team (Latest Contact Info) Description 02/11/2006 Outpatient Historical HIS [facility] Lasha Maguire MD [address] [facility] [address] [place] [address] Mastodynia (Primary Dx) Social History Tobacco Use Types Packs/Day Years Used Date Smoking Tobacco: Never Assessed Comments Unknown Sex and Gender Information Value Date Recorded Sex Assigned at Not on file Legal Sex Female 5:19 AM RESEARCH HOME ECONOMIST Gender Identity Not on file Sexual Orientation Not on file documented as of this encounter Plan of Treatment Not on file documented as of this encounter Visit Diagnoses Diagnosis Mastodynia- Primary documented in this encounter Care Teams Architecture Drafter Relationship Specialty Start Date End Date Kelli Munoz MD [address] [facility] [address] [place] [phone] PCP - General 10/24/15 documented as of this encounter
--- OUTSIDE RECORDS SUMMARY | 2025-06-05 15:53 | XMS_ITS | Encounter Summary ---
Author Organization [employer] Address [address] [place] [address] Care Team Providers Care Wet Plant Operator Name Role Phone Kelli Munoz MD Primary Care Provider +1- [phone] Encounter Details Date Type Department Care Team (Latest Contact Info) Description 01/17/2001 Outpatient Historical HIS [facility] Lasha Sykes MD [address] [facility] [address] [place] [address] Other threatened labor, antepartum (Primary Dx) Social History Tobacco Use Types Packs/Day Years Used Date Smoking Tobacco: Never Assessed Comments Unknown Sex and Gender Information Value Date Recorded Sex Assigned at Not on file Legal Sex Female 5:19 AM BOOM SUPERVISOR Gender Identity Not on file Sexual Orientation Not on file documented as of this encounter Plan of Treatment Not on file documented as of this encounter Visit Diagnoses Diagnosis Other threatened labor, antepartum- Primary documented in this encounter Care Teams Wet Plant Operator Relationship Specialty Start Date End Date Kelli Munoz MD [address] [facility] [address] [place] [phone] PCP - General 10/24/15 documented as of this encounter
--- OUTSIDE RECORDS SUMMARY | 2025-06-05 15:53 | XMS_ITS | Encounter Summary ---
Author Organization [facility] Address [address] [facility] Attn: Epic [place]rel[place] [address] Care Team Providers Care Ribbon Weaver Name Role Phone Kelli Munoz MD Primary Care Provider +1- [phone] Encounter Details Date Type Department Care Team (Late st Contact Info) Description 03/04/1998 Outpatient Historical Conversion, History Social History Tobacco Use Types Packs/Day Years Used Date Smoking Tobacco: Never Assessed Comments Unknown Sex and Gender Information Value Date Recorded Sex Assigned at Not on file Legal Sex Female 5:19 AM FLOATING LABOR GANG SUPERVISOR Gender Identity Not on file Sexual Orientation Not on file documented as of this encounter Plan of Treatment Not on file documented as of this encounter Visit Diagnoses Not on filedocumented in this encounter Care Teams Ribbon Weaver Relationship Specialty Start Date End Date Kelli Munoz MD [address] [phone] PCP - General 10/24/15 documented as of this encounter
--- OUTSIDE RECORDS SUMMARY | 2025-06-05 15:53 | XMS_ITS | Patient Health Record ---
Author Organization [facility] Address [address] [facility] [address] [place] [address] Care Team Providers Care Siphoner Name Role Phone MD Joe Vincent Primary Care Provider Unavailable SUKHJINDER PEREZ Unavailable [phone] Allergies No Known Allergies Reason For Referral No Information Medications Medication SIG (Take, Route, Frequency, Duration) Notes Start Date End Date Status Losartan Potassium 100 MG 1 tablet Orall y Once a day for 30 day(s) Active Bystolic 5 MG 1 tablet Orally Once a day for 30 day(s) Active Levoxyl 100 MCG 1 tablet in the morn ing on an empty stomach Orally Once a day for 30 day(s) Active amLODIPine Besylate 10 MG 1 tablet Orall y Once a day for 30 day(s) Active Spironolactone 25 MG 1 tablet Orally Onc e a day for 30 day(s) Active Social History Tobacco Use: Social History Observation Description Date Details (start date - stop date) Never Smoker NA - NA Tobacco Use/Smoking Question Answer Notes Are you a nonsmoker Problems Problem Type SNOMED Code ICD Code Onset Dates Problem Status W/U Status Risk Notes Problem Varicose veins of leg with pain, 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
--- OUTSIDE RECORDS SUMMARY | 2025-06-05 15:53 | XMS_ITS | Patient Health Record ---
Author Organization [employer] Address [address] [facility] [address] [place] [address] Care Team Providers Care Retail Greeting Card Merchandiser Name Role Phone Alexander ALONSO, Kelli Primary Care Provider Unava ilable Reason For Referral No Information Plan Of Treatment No Information Insurance Providers Payer Name Payer Address Payer Phone Subscriber Number Group Number Insured Name Patient Relationship to Insured Coverage Start Date Coverage End Date [facility] [employer] [facility] [employer] [facility] [address] [place] [phone] [id number] Stephanie Pascal Spouse - patient is the spouse of the insured 6
--- OUTSIDE RECORDS SUMMARY | 2025-06-05 15:53 | XMS_ITS | Clinical Summary ---
Author Organization [facility] Address [facility] [facility] [address] [place] [address] Care Team Providers Care Roulette Dealer Name Role Phone Unavailable Primary Care Provider Unavailabl e Source Comments [facility],non-owned Affiliates and Associated Physician Practices is amultiple site organization consisting of ambulatory clinics and hospital sitesin [place], [place], [place]. This disclosure is being madepursuant to the Care Everywhere program and may not contain all information available regarding this patient. Last updated 18.[facility] [place] Allergies Active Allergy Reactions Criticality Noted Date Comments Sulfa Drugs 07/19/2013 rash Medications * Be aware that medications may not be up to date on this document. Alwaysverify current medications with the patient. vitamin D, cholecalciferol, 2000 UNITS tablet once daily. Active losartan (COZAAR) 50 MG tablet once daily. Active levothyroxine (SYNTHROID) 88 MCG tablet once daily. Active hyoscyamine (LEVSIN) 0.125 MG tablet Take 1 Tab by mouth 3 times daily before meals. 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 Not on file Not on file Not on file Last Filed Vital Signs Vital Sign Reading Time Taken Comments Blood Pressure 128/78 07/19/2013 8:58 AM CDT Pulse 76 07/19/2013 8:58 AM CDT Temperature - - Respiratory Rate - - Oxygen Saturation - - Inhaled Oxygen Concentration - - Weight 106.1 kg (234 lb) 07/19/2013 8:58 AM CDT Height 182.9 cm (6') 07/19/2013 8:58 AM CDT Body Mass Index 31.74 07/19/2013 8:58 AM CDT Plan of Treatment Health Maintenance Due Date Last Done Comments COLOGUARD (AGES 45-75) - COL ON CA SCREENING 1964 CT COLONOGRAPHY - COLON CA SCREENING 1964 FIT - COLON CA SCREENING 1964 FLEX SIG - COLON CA SCREENING 1964 LIPID TESTING 1964 MAMMOGRAM 1964 HIV SCREENING 1979 HEPATITIS C SCREENING 12/18/1982 DTAP/TDAP/TD VACCINES (1 - Tdap) 1983 PNEUMOCOCCAL VACCINE 50+ (1 of 1 - PCV) 2014 ZOSTER VACCINE (1 of 2) 2014 COLON MONITORING 08/20/2023 08/20/2013 COLONOSCOPY - COLON CA SCREENING 08/20/2023 08/20/20 13 Colorectal Cancer Screening 08/20/2023 COVID-19 VACCINE (1 - 2023-2 5 season) 2024 DEPRESSION SCREENING 11/07/2024 INFLUENZA VACCINE (#1) 2025 Respiratory Syncytial Virus (RSV) Vaccine Pt: or over 60 yrs (1 - 1-dose 75+ series) 2039 HEPATITIS B VACCINE Aged Out No longe r eligible based on patient's age to complete this topic HIB VACCINE Aged Out No longer eligi ble based on patient's age to complete this topic HPV VACCINE Aged Out No longer eligi ble based on patient's age to complete this topic MENINGOCOCCAL (Group B) VACC INE SHARED DECISION-MAKING Aged Out No longer eligibl e based on patient's age to complete this topic MENINGOCOCCAL GROUPS A/C/Y/W VACCINE Aged Out No longer eligible b ased on patient's age to complete this topic Procedures Procedure Name Priority Date/Time Associated Diagnosis Comments ENDOSCOPY, COLON, DIAGNOSTIC Routine 08/20/2013 Altered bowel function from Last 3 Months or Most Recently Relevant to Health Maintenance Results * ENDOSCOPY, COLON, DIAGNOSTIC (08/20/2013) Mickey Vaughan MD GI PROCEDURE ORDERABLES Final Result [facility] RESULT SCAN from Last 3 Months or Most Recently Relevant to Health Maintenance Insurance AETNA AETNA
--- OUTSIDE RECORDS SUMMARY | 2025-06-05 15:53 | XMS_ITS | Encounter Summary ---
Author Organization [facility] Address [address] [place] [address] Care Team Providers Care Staff Weapons Officer Name Role Phone Gómez Gustafson MD Unavailable [phone] Javier Meade MD Unavailable [phone] Mounika Alexandre MD Unavailable Joe Vincent MD Primary Care Provider Encounter Details Date Type Department Care Team (Late st Contact Info) Description 05/08/2025 Results Follow-Up [facility] Cardiology [address] [place] [address] Kiarra Nogueira, KRISTY [address] [facility] [address] [place] [address] Lipid panel Social History Tobacco Use Types Packs/Day Years Used Date Smoking Tobacco: Former Cigarettes 0.5 15 Smokeless Tobacco: Never Comments:quit at age 29 Alcohol Use Standard Drinks/Week Comments Yes 6 (1 standard drink = 0.6 oz pur e alcohol) socially on weekends Comments No Sex and Gender Information Value Date Recorded Sex Assigned at Not on file Legal Sex Female 11:24 PM SORORITY MOTHER Gender Identity Female 11/10/2020 11:18 AM SORORITY MOTHER Sexual Orientation Not on file documented as of this encounter Plan of Treatment Not on file documented as of this encounter Visit Diagnoses Not on filedocumented in this encounter Care Teams Staff Weapons Officer Relationship Specialty Start Date End Date Joe Vincent MD [address] [facility] [address] [place] [address] PCP - General Family Practice 02/23/21 Gómez Gustafson MD Referring Physician Colon and Rectal Surgery 06/20/18 Javier Meade MD Referring Physician Gastroenterology 03/09/19 Mounika Alexandre MD [address] [facility] [address] [place] [address] Consulting Physician Medical Oncology 12/11/20 documented as of this encounter
--- OUTSIDE RECORDS SUMMARY | 2025-06-05 15:53 | XMS_ITS | Encounter Summary ---
Author Organization [facility] Address [address] [place] [address] Attn: [place] [address] Care Team Providers Care Chemical Compounder Helper Name Role Phone Kelli Munoz MD Primary Care Provider [phone]- [phone] Encounter Details Date Type Department Care Team (Late st Contact Info) Description 10/19/1991 Outpatient Historical [facility], Brigido [place] [address] [place] [address] Social History Tobacco Use Types Packs/Day Years Used Date Smoking Tobacco: Never Assessed Comments Unknown Sex and Gender Information Value Date Recorded Sex Assigned at Not on file Legal Sex Female 5:19 AM REFINISHER Gender Identity Not on file Sexual Orientation Not on file documented as of this encounter Plan of Treatment Not on file documented as of this encounter Visit Diagnoses Not on filedocumented in this encounter Care Teams Chemical Compounder Helper Relationship Specialty Start Date End Date Kelli Munoz MD [address] [phone] PCP - General 10/24/15 documented as of this encounter
--- OUTSIDE RECORDS SUMMARY | 2025-06-05 15:53 | XMS_ITS | Encounter Summary ---
Author Organization [facility] Address [address] [facility] Attn: [place] [address] Care Team Providers Care Expanded Function Dental Assistant Name Role Phone Kelli Munoz MD Primary Care Provider [phone]- [phone] Encounter Details Date Type Department Care Team (Late st Contact Info) Description 11/26/1989 Outpatient Historical [facility], Brigido [place] [id number] [place] [address] Social History Tobacco Use Types Packs/Day Years Used Date Smoking Tobacco: Never Assessed Comments Unknown Sex and Gender Information Value Date Recorded Sex Assigned at Not on file Legal Sex Female 5:19 AM BIOMEDICAL ENGINEERING PROFESSOR Gender Identity Not on file Sexual Orientation Not on file documented as of this encounter Plan of Treatment Not on file documented as of this encounter Visit Diagnoses Not on filedocumented in this encounter Care Teams Expanded Function Dental Assistant Relationship Specialty Start Date End Date Kelli Munoz MD [address] [phone] PCP - General 10/24/15 documented as of this encounter
--- OUTSIDE RECORDS SUMMARY | 2025-06-05 15:53 | XMS_ITS | Encounter Summary ---
Author Organization [facility] Address [address] [place] [address] Care Team Providers Care Lime Kiln And Recausticizing Operator Name Role Phone Kelli Munoz MD Primary Care Provider [phone]- [phone] Encounter Details Date Type Department Care Team (Latest Contact Info) Description 02/19/2008 Outpatient Historical HIS [facility] Lasha Maguire MD [address] [facility] [address] [place] [address] Other Screening Mammogram Social History Tobacco Use Types Packs/Day Years Used Date Smoking Tobacco: Never Assessed Comments Unknown Sex and Gender Information Value Date Recorded Sex Assigned at Not on file Legal Sex Female 5:19 AM ASSEMBLER ENGINE Gender Identity Not on file Sexual Orientation Not on file documented as of this encounter Plan of Treatment Not on file documented as of this encounter Procedures Procedure Name Priority Date/Time Associated Diagnosis Comments MAMMO SCREEN BILAT W OR WO CAD Routine 02/19/2008 9:33 AM CDT documented in this encounter Results * MAMMO DIGITAL SCREEN BILAT (02/19/2008 9:33 AM CDT) Anatomical Region Laterality Modality Breast Bilateral Other 02/19/2008 9:33 AM CDT Narrative 02/20/2008 7:49 AM CDT [facility] [address] [place], [place] [address] Admit Date: 02/19/2008 JOVI PASCAL Sex: F Admit Prov: LASHA MACKAY Date: 1965 Primary Care Prov: ROBERTA MÁRQUEZ CMRN: [id number] Room: LUIS FELIPEAlbertina N: [id number] IMAGING SERVICES Ordering Prov: LASHA MACKAY Accession Number: [id number] Interpretation BILATERAL SCREENING DIGITAL MAMMOGRAMS WITH COMPUTER ASSISTED DIAGNOSIS 02/19/08 Findings: The parenchyma is moderately dense bilaterally. There is no mass, malignant calcification, lymphadenopathy or other sign of malignancy. No change since 02/2007. The films were reviewed using the CAD system. Summary: No mammographic evidence of malignancy. Assessment BIRADS: 1-Negative Recommendation: Normal interval follow-up Dictated by: BJ GE Electronically signed by: BJ GE 02/20/2008 07:49 Transcribed: 02/19/2008 23:12 AMK Procedure Note Bj Ge MD - 02/20/[address] [address] Admit Date: 02/19/2008 JOVI PASCAL Sex: F Admit Prov: LASHA MACKAY Date: 1965 Primary Care Prov: ROBERTA MÁRQUEZ CMRN: [id number] Room: LUIS FELIPEAlbertina SSN: [id number] IMAGING SERVICES Ordering Prov: LASHA MACKAY Interpretation BILATERAL SCREENING DIGITAL MAMMOGRAMS WITH COMPUTER ASSISTEDDIAGNOSIS 02/19/08 Findings: The parenchyma is moderately dense bilaterally. There isno mass, malignant calcification, lymphadenopathy or other sign ofmalignancy. No change since 02/2007. The films were reviewed using the CADsystem. Summary: No mammographic evidence of malignancy. Assessment BIRADS: 1-Negative Recommendation: Normal interval follow-up Dictated by: BJ GE Electronically signed by: BJ GE 02/20/2008 07:49 Transcribed: 02/19/2008 23:12 AMK Lasha Mackay MD MAMMO ORDERABLES Final Result documented in this encounter Visit Diagnoses Diagnosis Other screening mammogram documented in this encounter Care Teams Lime Kiln And Recausticizing Operator Relationship Specialty Start Date End Date Kelli Munoz MD [address] [address] PCP - General 10/24/15 documented as of this encounter
--- OUTSIDE RECORDS SUMMARY | 2025-06-05 15:53 | XMS_ITS | Encounter Summary ---
Author Organization [facility] Address [address] [place] [address] Phone Care Team Providers Care Vp Product Management Name Role Phone Livan Jaeger MD Primary Care Provider [phone] Gómez Gustafson MD Unavailable [phone] Livan Jaeger MD Primary Care Provider [phone] Javier Huddleston DO Unavailable [phone] Javier Meade MD Unavailable [phone] Beronica Gordon MD Unavailable [phone] Mounika Alexandre MD Unavailable [phone] Joe Vincent MD Primary Care Provider Joe Vincent MD Primary Care Provider Encounter Details Date Type Department Care Team (Late st Contact Info) Description 03/07/2018 Orders Only [facility] [place] [address] Social History Tobacco Use Types Packs/Day Years Used Date Smoking Tobacco: Former Cigarettes Smokeless Tobacco: Never Comments:quit at age 29 Alcohol Use Standard Drinks/Week Comments Yes 6 (1 standard drink = 0.6 oz pur e alcohol) socially on weekends Comments Unknown Sex and Gender Information Value Date Recorded Sex Assigned at Not on file Legal Sex Female 11:24 PM FAMILY PRESERVATION CASEWORKER Gender Identity Female 11/10/2020 11:18 AM FAMILY PRESERVATION CASEWORKER Sexual Orientation Not on file documented as of this encounter Plan of Treatment Not on file documented as of this encounter Procedures Procedure Name Priority Date/Time Associated Diagnosis Comments DISCHARGE LABORATORY CUMULATIVE REPORT 03/07/2018 12:00 AM CDT documented in this encounter Results * DISCHARGE LABORATORY CUMULATIVE REPORT (03/07/2018 12:00 AM CDT) Narrative 03/07/2018 12:00 AM CDT Ordered by an unspecified provider. us Historical Provider LAB BLOOD ORDERABLES Jo l Result documented in this encounter Visit Diagnoses Not on filedocumented in this encounter Care Teams Vp Product Management Relationship Specialty Start Date End Date Livan Jaeger MD [address] [place] [address] PCP - General Family Practice 12/14/17 03/08/19 Livan Jaeger MD [address] [place] [address] PCP - General Family Practice 03/09/19 02/19/21 Joe Vincent MD [address] [address] PCP - General Family Practice 02/20/21 02/20/21 Joe Vincent MD [address] [address] PCP - General Family Practice 02/23/21 Gómez Gustafson MD [address] [place] [address] Referring Physician Colon and Rectal Surgery 06/20/18 Javier Huddleston DO [address] [place] [address] Consulting Physician Gastroenterology 03/09/19 03/09/19 Javier Meade MD [address] [place] [address] Referring Physician Gastroenterology 03/09/19 Beronica Gordon MD [address] [place] [address] Endocrinology 06/11/19 12/29/22 Mounika Alexandre MD [address] [facility] [address] [place] [address] Consulting Physician Medical Oncology 12/11/20 documented as of this encounter
--- OUTSIDE RECORDS SUMMARY | 2025-06-05 15:53 | XMS_ITS | Encounter Summary ---
Author Organization [facility] Address [address] [facility] Attn: [place] [address] Care Team Providers Care Qa Consultant Name Role Phone Kelli Munoz MD Primary Care Provider [phone] Encounter Details Date Type Department Care Team (Late st Contact Info) Description 01/14/1994 Outpatient Historical Kiko Aj MD [address] 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
--- OUTSIDE RECORDS SUMMARY | 2025-06-05 15:53 | XMS_ITS | Encounter Summary ---
Author Organization [employer] Address [address] [place] [address] Care Team Providers Care Automotive Hardware Engineer Name Role Phone Kelli Munoz MD Primary Care Provider [phone] Encounter Details Date Type Department Care Team (Latest Contact Info) Description 01/25/2001 Inpatient Historical HIS PATIENT IN A BED Lasha Sykes MD [address] [facility] [address] [place] [address] Other and unspecified cord entanglement, without mention of compression, complicating labor and delivery, delivered (Primary Dx) Social History Tobacco Use Types Packs/Day Years Used Date Smoking Tobacco: Never Assessed Comments Unknown Sex and Gender Information Value Date Recorded Sex Assigned at Not on file 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
--- OUTSIDE RECORDS SUMMARY | 2025-06-05 15:53 | XMS_ITS | Continuity of Care Document ---
Author Organization [facility] Address [address] [place] [address] [address] [place] [address] Phone Care Team Providers Care Payroll Processor Name Role Phone Collins OD, Javier Unavailable Unavailable Procedures Procedure Date Eye Exam & Treatment Refraction Advance Directives Directive Yes / No Effective Date File Name No Information Encounters Encounter Description Practice Location Reason(s) For Visit Diagnoses Date Provider Providers Copied on Encounter [facility], [address] [place] [address] [address], [place], [place], [id number], [place] tel:[phone] [facility] No Information [phone] Collins OD Javier. [address] , [address], [place], [address], [place]. tel:[phone] Family History Family Member Type Diagnosis Age At Onset No Information Payers Payer name Insurance type Covered alliance party ID Authoriza tion(s) [facility] [id number] Social History Type Description Quantity Date Captured Comments Sex Female Smoking Status No Information Chief Complaint And Reason For Visit No Information Reason For Referral Reason For Referral No Information History Of Present Illness Encounter Date Complaint History Of Prese nt Illness No Information Functional Status Date Functional Assessmen t No Information Instructions Date Instruction Additional Infor mation No Information Assessments Type Assessment Date No Information Patient Care Teams Name Effective Dates (start - stop) Status Members No Information
--- OUTSIDE RECORDS SUMMARY | 2025-06-05 15:53 | XMS_ITS ---
Author Organization [facility] [address] Address [address] [place] [address] Care Team Providers Care Admissions Advisor Name Role Phone Gómez Gustafson MD Unavailable [phone] Javier Meade MD Unavailable [phone] Mounika Alexandre MD Unavailable [phone] Joe Vincent MD Primary Care Provider Active Problems Problem Noted Date Diagnosed Date [...] 03/23/2014 Overview (02/11/2017): DIS AMINO-ACID METAB NOS Current Treatment and Therapy Plans Lanreotide 28 Day Cycles - Carcinoid* Plan Start Date:06/03/2025 Plan Provider:Mounika Alexandre MD Linked Problems Neuroendocrine cancer (HCC) Treatment Medications Current Day (Day 1 , Cycle 1 - Planned for 06/03/2025) Next Day (Day 1, Cycle 2 - Planned for 07/01/2025) lanreotide (SOMATULINE DEPOT) lanreotide (SOMATULINE DEPOT) subcutaneous injection 120 mg lanreotide (SOMATULINE DEPOT) subcutaneous injection 120 mg Past Treatment and Therapy Plans Oncology Chemotherapy Treatment Plan Name Start Date Discontinue Date Treatment Medications Discontinue Reason Plan Provider Cycles Octreotide 28 Day Cycles - Carcinoid 10/16/20 20 05/07/2025 octreotide (SandoSTATIN LAR)octreotide LAR (SandoSTATIN LAR) Financial Mounika Alexandre MD 56 of 58 cycles completed Lifetime Dose Tracking * Chemical Lifetime Dose Automatic Entry Manual Entr y doxorubicin 41.241 mg/m2 (100 mg) 41.241 mg/m2 (100 m g) 0 mg/m2 (0 mg) Fluoro Time 49.2 minutes 49.2 minutes 0 minutes doxorubicin isotoxic equivalent (Please manually verify calculation) 41.241 mg/m2 (100 mg) 41.241 mg/m2 (100 mg) 0 mg/m2 (0 mg) Air kerma at the reference point (Ka,r) 2,363 mGy 2,363 mGy 0 mGy DLP 28,987 mGycm 28,987 mGycm 0 mGycm Resolved Problems Problem Noted Date Diagnosed Date Resolved Date Dyslipidemia 04/28/2021 05/02/2023
--- OUTSIDE RECORDS SUMMARY | 2025-06-05 15:53 | XMS_ITS | Clinical Summary ---
Author Organization [facility] Address [address] [place] [address] Care Team Providers Care Swimming Professor Name Role Phone Unavailable Primary Care Provider Unavailabl e Social History Tobacco Use Types Packs/Day Years Used Date Smoking Tobacco: Never Assessed Comments Unknown Sex and Gender Information Value Date Recorded Sex Assigned at Not on file Legal Sex Female 5:53 PM CDT Gender Identity Not on file Sexual Orientation Not on file Plan of Treatment Health Maintenance Due Date Last Done Comments Cervical Cancer Screening Pa p Smear (Age 30 to 64) Every 3 Years 1964 Colorectal Cancer Screening Colonoscopy (10 Years) 1964 Annual Physical 1967 Hepatitis C 1982 DTaP, Tdap and Td Vaccines ( 1 - Tdap) 1983 Cervical Cancer Screening Pa p with HPV Testing (Age 30 to 64) Every 5 Years 1994 Cervical Cancer Screening with HPV 1994 Mammogram Screening 2004 Pneumococcal Vaccine: 50+ Ye ars (1 of 1 - PCV) 2014 Zoster Vaccines (1 of 2) 2014 COVID-19 Vaccine (2023-2 5 season) 2024 RSV Immunization or 60+ Years (1 - 1-dose 75+ series) 2039 Meningococcal B Vaccine Aged Out No l onger eligible based on patient's age to complete this topic Meningococcal Vaccine Aged Out No angelica filomena eligible based on patient's age to complete this topic RSV Immunizations Under 20 Months Aged Out No longer eligible based on patient's age to complete this topic
--- OUTSIDE RECORDS SUMMARY | 2025-06-05 15:54 | XMS_ITS | Encounter Summary ---
Author Organization [facility] Address [address] [place] [address] Care Team Providers Care Librarian Head Name Role Phone Kelli Munoz MD Primary Care Provider [phone] Encounter Details Date Type Department Care Team (Latest Contact Info) Description 02/19/2003 Outpatient Historical HIS [facility] Lasha Maguire MD [address] [facility] [address] [place] [address] SCREENING MAMM-MAILG NEOPL-OTHER (Primary Dx) Social History Tobacco Use Types Packs/Day Years Used Date Smoking Tobacco: Never Assessed Comments Unknown Sex and Gender Information Value Date Recorded Sex Assigned at Not on file 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
--- OUTSIDE RECORDS SUMMARY | 2025-06-05 15:54 | XMS_ITS | Encounter Summary ---
Author Organization [facility] Address [address] [place] [address] Care Team Providers Care Christian Ministries Professor Name Role Phone Kelli Munoz MD Primary Care Provider [phone] Encounter Details Date Type Department Care Team (Latest Contact Info) Description 02/21/2002 Outpatient Historical HIS [facility] Lasha Maguire MD [address] [facility] [address] [place] [address] MAMMOGRAPHIC MICROCALCIFICATION (Primary Dx) Social History Tobacco Use Types Packs/Day Years Used Date Smoking Tobacco: Never Assessed Comments Unknown Sex and Gender Information Value Date Recorded Sex Assigned at Not on file 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
== END 2025-06-05 15:50 | disposition home or self-care (01) ==
PROVIDERS: PCP Family Medicine; Visit Provider Nurse Practitioner Family
DX: R35.0 Frequency of micturition (principal)
CPT/HCPCS: 87086

== ENCOUNTER 2025-09-09 13:46 | Outpatient (CLI) | payer OTHER, SELFPAY ==
--- NOTE | ~2025-09-09 | MM_ITS ---
EXAMINATION: MM screening emilia BI w leonides HISTORY: Screening TECHNIQUE: Craniocaudal and mediolateral oblique 3-D tomosynthesis images were obtained and synthetic 2-D images were generated. CAD analysis was submitted and interpreted. COMPARISON: Comparison to multiple prior studies sequentially, with oldest reviewed study dated , 07/16/2020 BREAST PARENCHYMAL COMPOSITION: There are scattered areas of fibroglandular density. FINDINGS: There is no evidence of suspicious mass, calcification, or architectural distortion to suggest malignancy in either breast. IMPRESSION: 1. No mammographic evidence of malignancy. 2. Recommend routine screening mammography in one year. BI-RADS Category 1: Negative Reviewed, dictated and finalized at location B. PLANT ENGINEER
== END 2025-09-09 13:47 | disposition home or self-care (01) ==
LOC: ANHIMG 13:48
PROVIDERS: PCP Family Medicine; Visit Provider Student in an Organized Health Care Education/Training Program
DX: Z12.31 Encounter for screening mammogram for malignant neoplasm of breast (principal)
CPT/HCPCS: 77063; 77067